=== PATIENT | male | born 1955 | race Two or more races ===

== ENCOUNTER 2025-07-04 15:00 | Inpatient (IN) | payer OTHER, MEDICAID, MEDICARE, SELFPAY ==
[2025-07-04 15:04] VITALS: BP 109/77; PULSE 110; PULSE 125; RESP 16; RESP 18; TEMP 36.6; O2SAT 95; O2SAT 99; BMI 25.9
--- NOTE | 2025-07-04 15:22 | EKG_ITS ---
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
[2025-07-04 15:55] LABS: Lactate (Lactic Acid) 2.3 mMol/L (0.4-2.0)
[2025-07-04 15:57] LABS: Collection Type, Urine Clean Catch; Squamous Epithelial Cell,Urine 0 /hpf (0-5)
[2025-07-04 15:59] LABS: Basophils # (Auto) 0.1 Thou/mm3 (0.0-0.2); Basophils % (Auto) 1 % (0-2.5); Eosinophils # (Auto) 0.1 Thou/mm3 (0.0-0.5); Eosinophils % (Auto) 1 % (0-10); Hematocrit 39.7 % (41.0-53.0); Hemoglobin 13.6 g/dL (13.5-16.0); Immature Granulocytes Auto 0.04 Thou/mm3 (0.00-0.00); Lymphocytes # (Auto) 2.9 Thou/mm3 (1.0-4.8); Lymphocytes % (Auto) 35 % (10-50); Mean Corpuscular HGB Conc 34.3 g/dl (31.0-37.0); Mean Corpuscular Hemoglobin 29.8 pg (25.0-35.0); Mean Corpuscular Volume 87 fL (80-100); Monocytes # (Auto) 0.6 Thou/mm3 (0.0-0.8); Monocytes % (Auto) 7 % (0-12); Neutrophils # (Auto) 4.7 Thou/mm3 (1.8-7.7); Neutrophils % (Auto) 56 % (37-80); Nucleated Red Blood Cell # 0.00 Thou/mm3 (0.00-0.00); Nucleated Red Blood Cell % 0 /100 WBC (0); Platelet Count 145 Thou/mm3 (140-440); RDW Standard Deviation 40.3 fL (35.1-43.9); Red Blood Count 4.57 Miln/mm3 (4.50-5.90); White Blood Count 8.4 Thou/mm3 (3.8-10.6)
[2025-07-04 16:05] LABS: Bilirubin,Urine Negative (Negative); Blood,Urine Negative (Negative); Clarity,Urine Clear (Clear/Hazy); Color,Urine Yellow (Lt Yel-Yel); Glucose, Urine 4+ (Negative); Ketones,Urine Negative (Negative); Leukocyte Esterase,Urine Positive (Negative); Nitrite,Urine Negative (Negative); PH,Urine 6.0 (5.0-7.0); Protein,Urine 1+ (Neg - Trace); RBC,Urine 11 /hpf (0-3); Specific Gravity,Urine 1.025 (1.001-1.035); Urobilinogen,Urine Negative mg/dL (0.0-1.0); WBC,Urine 33 /hpf (0-5)
[2025-07-04 16:20] LABS: B-Type Natriuretic Peptide 333 pg/mL (0-100)
[2025-07-04 16:22] LABS: Anion Gap 13 (7-16); BUN/Creatinine Ratio 8 Ratio (12-20); Blood Urea Nitrogen 11 mg/dL (9-23); Calcium 8.8 mg/dL (8.3-10.6); Carbon Dioxide 21.7 mMol/L (20.0-31.0); Chloride 103 mMol/L (98-107); Creatinine (Component) 1.3 mg/dL (0.6-1.3); Estimated Creatinine Clearance 43.6 mL/min (>60); Glucose 363 mg/dL (74-106); Lipase 38 U/L (12-53); Osmolality,Calculated 290 (275-295); Potassium 3.8 mMol/L (3.4-5.1); Sodium 138 mMol/L (136-145); eGFR 59 See Note
[2025-07-04 16:23] LABS: Troponin I 1.070 ng/mL (0.0-0.045)
[2025-07-04 17:45] VITALS: PULSE 133
[2025-07-04 18:09] LABS: Troponin I 1.095 ng/mL (0.0-0.045)
[2025-07-04 18:35] VITALS: BP 121/77; PULSE 135; RESP 26; TEMP 36.8; O2SAT 95
[2025-07-04 18:50] LABS: Reflex Lactate? Y
[2025-07-04 20:00] VITALS: BP 110/72; PULSE 133; RESP 19; TEMP 36.8; O2SAT 97
[2025-07-04 20:04] LABS: Lactic Acid, 3 HR 2.1 mMol/L (0.4-2.0)
[2025-07-04 20:42] LABS: Troponin I 1.108 ng/mL (0.0-0.045)
[2025-07-04] MEDS: INSULIN HUM REGULAR 1 UNIT/0.01 ML (PER UNIT) 8 UNIT SC (22:01)
[2025-07-04 22:02] VITALS: BP 116/82; PULSE 133
[2025-07-04] MEDS: FUROSEMIDE INJ 10 MG/ML 4ML VIAL 40 MG IVP (22:02)
[2025-07-04] MEDS: SODIUM CHLORIDE 0.9% 1000 ML 1,000 ML 150 ML IV (22:03)
--- NOTE | 2025-07-04 22:15 | PD.EDSYNC ---
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 Patient was seen at this facility approximately 1 week ago for an unknown testicular surgical procedure. Patient does not recall if it was a hernia procedure or testicular torsion. Subsequent to that procedure, patient was sent [place] [facility] for a few days and eventually went up in a rehab facility. Per EMS, patient had gotten up to utilize the bathroom when the syncopal event occurred. Unknown as to the amount of time the patient was down. At arrival, patient had no physical complaints of trauma status post syncopal event. No blood loss. Related Data Allergies Allergy/AdvReac Type Severity Reaction Status Date / Time No Known Allergies Allergy Verified 07/04/25 15:03 Review of Systems Review of Systems Systems Reviewed: All systems reviewed, normal except as documented Past Medical History Past Medical History CARDIAC: Negative Congestive Heart Failure RESPIRATORY: Negative Chronic Obstructive Pulmonary Disease (COPD) GENITOURINARY: Negative Renal Disease ENDOCRINE: Positive Diabetes Mellitus Type 2; Negative Diabetes Mellitus Type 1 Surgical History OTHER SURGICAL HX: TESTICULAR SURGERY Social History SMOKING STATUS: Never smoker ED Exam General Limitations: Present language barrier General appearance: Present in distress (Due to some generalized lightheadedness concern.) Head Head exam: Present atraumatic and other (Unremarkable cranial evaluation. No signs of trauma. No skull depressions or deformities.) Eye Eye exam: Present normal appearance, PERRL and EOMI ENT ENT exam: Present normal exam, normal oropharynx and mucous membranes moist Neck Neck exam: Present normal inspection, full ROM and trachea midline Chest Chest inspection: Present normal inspection and symmetric chest wall rise Respiratory Respiratory exam: Present normal lung sounds bilaterally Cardiovascular Cardiovascular exam: Present regular rate, normal rhythm and normal heart sounds Abdominal Exam Abdominal exam: Present soft and normal bowel sounds Extremities Exam Extremities exam: Present normal inspection and full ROM Back Exam Back exam: Present normal inspection and full ROM Neurological Exam Neurological exam: Present alert, oriented X3 and CN II-XII intact Psychiatric Psychiatric exam: Present normal affect and normal mood Skin Skin exam: Present warm, dry, intact and normal color Course Quality Measures none Orders Category Date Time Status IV [Insert IV] NOW Care 07/04/25 15:24 Active EKG (ED Only) Stat Exams 07/04/25 15:22 Draft BMP [Basic Metabolic Panel] Stat Lab 07/04/25 15:41 Completed BNP [B-Type Natriuretic Peptide] Stat Lab 07/04/25 15:41 Completed CBC Stat Lab 07/04/25 15:41 Completed Lactate (Lactic Acid) Stat Lab 07/04/25 15:41 Completed Lactic Acid, 3 HR Stat Lab 07/04/25 19:51 Completed Lipase Stat Lab 07/04/25 15:41 Completed Troponin I Stat Lab 07/04/25 15:41 Completed Troponin I Stat Lab 07/04/25 17:26 Completed Troponin I Stat Lab 07/04/25 19:51 Completed UA [Urinalysis] Stat Lab 07/04/25 15:46 Completed Furosemide Inj [Lasix Inj] Med 07/04/25 20:48 Discontinued 40 mg IVP X1 ONE Insulin Human NPH [NovoLIN N] Med 07/04/25 20:48 Discontinued 8 unit SC X1 ONE Insulin Regular Med 07/04/25 21:56 Discontinued 8 unit SC X1 ONE Sodium Chloride 0.9% 1000 ml [Ns] 1,000 ml Med 07/04/25 20:48 Active IV 150 mls/hr cefTRIAXone [Rocephin] 1,000 mg Med 07/04/25 20:49 Discontinued Lidocaine 1% Pf Vial 5ml [Xylocaine 1% Pf 5 ml] 2.1 ml IM X1 As noted above Vital Signs Vital signs: Vital Signs Temperature 97.9 F 07/04/25 15:04 Pulse Rate 125 H 07/04/25 15:04 Respiratory Rate 18 07/04/25 15:04 Blood Pressure 109/77 07/04/25 15:04 Pulse Oximetry (%) 95 07/04/25 15:04 Oxygen Delivery Method Room Air 07/04/25 15:04 As noted above Syncope MDM Narrative MDM Narrative:: All studies performed at the ED were evaluated by me personally. Serum studies revealed a hyperglycemic state, what appears to be acute renal injury, elevated lactic acid, urinary tract infection and significant CHF exacerbation. Patient will be admitted for management of his probable uroseptic event as well as a CHF. Discussed the case with Dr. Prescott. Advised him of patient presentation as well as laboratory findings. He agreed except patient as an admission. Patient data External records reviewed:: [facility] previous records Clinical information provided by:: patient and EMS Social determinants that could affect healthcare access:: none Patient has the following chronic illnesses:: None How is presenting disease/condition affected by chronic disease/condition?: uneffected by Evaluation data The following diagnostics were reviewed and interpreted by me:: lab results and EKG tracing(s) Lab and/or radiology exams considered but not ordered:: None Interpretation Summary: Serum laboratories revealed a hyperglycemic state, what appears to be acute renal injury concerns, elevated lactic acid, significant acute CHF exacerbation and a UTI that may be related to uroseptic concern. Medications / Prescriptions Medications or Prescriptions considered but not ordered:: None Medication administrations:: Medication Administration History Sodium Chloride (Ns) 1,000 mls @ 150 mls/hr IV .[id number] ONE Stop: 07/05/25 03:27 Last Admin: 07/04/25 22:03 Dose: 150 mls/hr Documented By: TAVIA Discontinued Medications Ceftriaxone Sodium 1,000 mg/ (Lidocaine HCl 2.1 ml) 0 mg IM X1 ONE Stop: 07/04/25 20:50 Last Admin: 07/04/25 22:04 Dose: 2.1 mg Documented By: TAVIA Furosemide (Furosemide Inj 10 Mg/Ml 4ml Vial) 40 mg IVP X1 ONE Stop: 07/04/25 20:49 Last Admin: 07/04/25 22:02 Dose: 40 mg Documented By: TAVIA Insulin Human NPH (Insulin Nph 1 Unit/0.01 Ml (Per Unit)) 8 unit SC X1 ONE Stop: 07/04/25 20:49 Last Admin: 07/04/25 22:04 Dose: Not Given Documented By: TAVIA Non-Admin Reason: Discontinued Insulin Human Regular (Insulin Hum Regular 1 Unit/0.01 Ml (Per Unit)) 8 unit SC X1 ONE Stop: 07/04/25 21:57 Last Admin: 07/04/25 22:01 Dose: 8 unit Documented By: TAVIA Co-signed By: CVL As noted above Consultations Consultation(s) initiated? (list below): Yes Consultation #1 (Physician, Specialty, Details): Dr Alhalaibeh Time: 21:30 Diagnosis Syncope Differential Diagnosis: syncope due to orthostatic hypotension, vasovagal syncope, complete atrioventricular block and other (Urosepsis, CHF) Most likely diagnosis given after review of the tests above:: Urosepsis, CHF Admission Indicated Admission indicated?: indicated Explain why admission is indicated or not indicated:: Patient will require management of his CHF exacerbation as well as antibiotics to address his urinary tract concerns. Admission Request Was there a request for admission?: Yes Admission Attestation Admission request attestation: Discussed case with [] from Hospitalist service regarding admission. Discussed patients ED course, exam findings, labs, and radiology results. The Hospitalist [agrees,declines] to accept the patient for admission. Disposition Plan Disposition Plan: Admit Discharge Plan Plan Patient Disposition: Admit Acute Care w/in Hospital Prescriptions/Referrals Referrals: Koby Morgan MD [Primary Care Provider] - In 1 week Problem List Clinical Impression: Acute exacerbation of CHF (congestive heart failure), Bacterial UTI Patient/Caregiver Discharge Instructions Print Language: Khmer Stand Alone Forms: Lupe Award Info., Patient Portal Info Letter
--- NOTE | 2025-07-04 22:26 | ECHO_ITS ---
Patient Info Name: Yaakov Avitia Age: 69 years : 1955 Gender: Male Ht: 163 cm Wt: 68 kg BSA: 1.77 m2 BP: 116 / 82 mmHg HR: 111 bpm Exam Date: 07/05/2025 6:56 AM Admit Date: 07/04/2025 Site: [facility] Room Number: [id number] Patient Status: I Exam Type: CA echo doppler complete Warp Tester: Ofe Lopez Ordering Physician: Lon Burger Study Info Indications STEMI - Contrast/Agitated Saline Contrast/Ag. Saline: Agitated Saline Amount: --- ml Primary Location: [id number] Left Ventricular Outflow Tract Name Value Normal LVOT 2D LVOT Diameter 1.9 cm LVOT Doppler LVOT Peak Velocity 87 cm/s LVOT Mean Gradient 2 mmHg LVOT VTI 14 cm LVOT VTI/AV VTI Ratio 1.2 LVOT Stroke Volume 41 ml Pulmonic Valve Name Value Normal PV Doppler PV Peak Velocity 84 cm/s PV Regurgitation Doppler ND Peak End Diastolic Velocity 147 cm/s Mitral Valve Name Value Normal MV Doppler MV Decel Dawes 548 cm/s2 MV PHT 43 ms MV Area (PHT) 5.1 cm2 4.0-5.0 MV Diastolic Function MV E Peak Velocity 81 cm/s MV A Peak Velocity 51 cm/s MV E/A 1.6 MV Annular TDI MV Septal e' Velocity 6.9 cm/s MV E/e' (Septal) 11.8 MV Lateral e' Velocity 7.5 cm/s MV E/e' (Lateral) 10.8 MV e' Average 7.18 cm/s MV E/e' (Average) 11.3 Tricuspid Valve Name Value Normal TV Regurgitation Doppler TR Peak Velocity 321 cm/s Estimated PAP/RSVP RA Pressure 3 mmHg <=5 PA Systolic Pressure 44 mmHg <36 RV Systolic Pressure 44 mmHg <36 Aortic Valve Name Value Normal AV Doppler AV Peak Velocity 91 cm/s AV Mean Gradient 2 mmHg AV VTI 12 cm AV Area (Cont Eq VTI) 3.5 cm2 >=3.0 AV Area (Cont Eq Dewey) 2.7 cm2 AV DI (Dewey) 0.95 AV Regurgitation 2D LVOT Area 2.8 cm2 Ventricles Name Value Normal LV Dimensions 2D/MM IVS Diastolic Thickness (2D) 0.9 cm 0.6-1.0 LVID Diastole (2D) 3.2 cm 4.2-5.8 LVIW Diastolic Thickness (2D) 1.1 cm 0.6-1.0 LVID Systole (2D) 2.1 cm 2.5-4.0 LVOT Diameter 1.9 cm LV Mass (2D Cubed) 90.32 g 88.00-224.00 LV Mass Index (2D Cubed) 51 g/m2 49-115 Relative Wall Thickness (2D) 0.69 <=0.42 IVS/LVIW Diastolic Thickness (2D) 0.82 0.00-1.50 LV Fractional Shortening/Ejection Fraction 2D/MM LV Fractional Shortening (2D) 34 % 25-43 LV EF (2D Teichholz) 65 % Atria Name Value Normal LA Dimensions LA Volume (4C A-L) 33 ml LA Volume (BP A-L) 33 ml Left Ventricle Left ventricular chamber dimension is normal. Left ventricular systolic function is normal with visually estimated ejection fraction of 50-55%. There is concentric remodeling noted in the left ventricle. Left ventricular segmental wall motion is normal. There is normal diastolic function in the left ventricle. Right Ventricle Right ventricular chamber dimension is normal. Right ventricular systolic function is reduced. Left Atrium Left atrial chamber dimension is normal. Right Atrium Right atrial chamber dimension is normal. Aortic Valve The aortic valve is trileaflet. There is mild aortic valve sclerosis. Trace and mild aortic regurgitation. There is no aortic valve stenosis with a peak velocity of 91 cm/s, mean gradient of 2 mmHg, and aortic valve area of 3.5 cm2. There is trace aortic valve regurgitation. Pulmonic Valve The pulmonic valve is normal. There is no pulmonic valve stenosis. There is mild pulmonic regurgitation. Mitral Valve The mitral valve has normal leaflets. There is no mitral valve stenosis. There is mild mitral valve regurgitation. Tricuspid Valve The tricuspid valve leaflets are normal. There is no tricuspid valve stenosis. There is mild tricuspid valve regurgitation. Pulmonary hypertension, estimated pulmonary arterial systolic pressure is 44 mmHg and systemic blood pressure of 116 mmHg in systole. Pericardium/Pleural The pericardium appears normal. There is no pericardial effusion. No pleural effusion visualized. Inferior Vena Cava Normal inferior vena cava with >50% collapse upon inspiration consistent with normal right atrial pressure, 3 mmHg. Aorta The aortic measurements are indexed to age and body surface area. The aortic root at the sinus of Valsalva is not well visualized. The prox ascending aorta is not well visualized. Summary 1. ncc calcified. 2. Left ventricle size is normal and systolic function is normal. Estimated ejection fraction is 50-55%. Mild LVH. There is stage 1 diastolic function. 3. Right ventricle chamber size is normal and systolic function is reduced. Estimated RVSP is 44 mmHg with RAP 3. Severe HTN. 4. There is mild mitral, tricuspid and pulmonic valve regurgitation. 5. There is mild aortic valve sclerosis. Trace and mild aortic regurgitation. 6. Bubble study negative for any PFO or ASD. Report Signatures Finalized by Miguel Saldivar on 07/06/2025 12:55 AM
--- NOTE | 2025-07-04 23:28 | XR_ITS ---
EXAMINATION: AP chest single view TECHNIQUE: AP portable upright chest single view Date and time: July 04, 2025, 11:32 p.m. INDICATIONS: Syncopal episode today FINDINGS: Mild prominence of the ventricle No lobar pneumonia or pulmonary edema Moderate osteopenia IMPRESSION: No active disease
[2025-07-04 23:30] LABS: INR 1.0 (0.9-1.3); Partial Thromboplastin Time 33.0 Seconds (22.0-36.0); Prothrombin Time 10.9 Seconds (9.0-12.2)
--- NOTE | 2025-07-04 23:40 | ESHP_ITS ---
<Statement entered by Brad Crouch MD - 07/05/25 06:10> Patient is a poor historian, Setswana-speaking, took history with the help of laborer road on phone. 69-year-old male who is recently diagnosed with hyperlipidemia, diabetes mellitus on insulin a month ago, recently underwent surgery on his right testis,? Radha gangrene and [facility], 2 weeks ago and was discharged on [facility] and completed last dose on the day before of admission, remote history of prostate problem and underwent procedure in [place] following which his urinary symptoms improved per patient was brought to the hospital as he was noted to have presyncopal like episode in the facility. Reported that he was doing his regular physical therapy and walking across the street, at the end of the street noted to have dizziness, generalized weakness and feeling of legs giving away with blackout and immediately reported that he sat down. Did not sustain any fall. Reported to have mild chest discomfort at that time and slowly resolved later. At the time of admission to did not have any significant symptoms. Vitals at the time of admission are significant for tachycardia with heart rate around 125 bpm, sinus tachycardia. Labs at the time of admission are significant for lactate 2.3, troponin 1.070, glucose 363. Urinalysis significant for 11 RBC, 33 WBC. EKG showed sinus tachycardia with ST depressions in leads I, 2, V3-V5, ST segment elevation in the aVR. Was given NS, Lasix, insulin, ceftriaxone, insulin NPH 8 units in the ED. Admitted by the hospitalist team in view of NSTEMI. Loading dose of aspirin 325 mg is given and patient is started on heparin drip. Echocardiogram was ordered. Consulted machine packager, Dr. Saldivar. Started on insulin sliding scale. I have personally seen and examined the patient, agree with residents assessment and plan Patient plan of care was discussed with the attending physician, Dr. Genie Crouch, PGY2 Documentation for date of: 07/04/25 HPI History of Present Illness History of present illness: HPI: 69-year-old Setswana-speaking male with a past medical history of insulin- dependent diabetes currently in acute rehab for an unspecified testicular lumpectomy procedure 2 weeks ago who presented to the ED in the evening of 07/04/2025 after syncopal episode. The patient mentions that he had vision changes and chest pain and then fainted. He does not recall when the event happened. He endorsed nausea and pain on respiration on arrival. He denied loss of control of his bowel or bladder. He denied trauma. Patient is a poor historian. He mentioned an unspecified testicular lump procedure that was performed 2 weeks ago. He is currently at [facility] re[facility] for acute rehab following his procedure. Per the facility the patient experienced a syncopal episode during physical therapy. He was found to have a troponin of 1.071. EKG showed sinus tachycardia with a rate of [address] elevation greater than 1 mm in aVR, ST depressions in V3-V6 0.5-2 mm. Patient was admitted for STEMI equivalent. ED Course: * Significant vitals on arrival: Heart rate 125, remainder vitals within normal limits. * Significant labs: Troponin 1.071, glucose 363, lactic acid 2.3 which downtrended to 2.1, BNP 333. * Imaging: EKG showed sinus tachycardia with a rate of [address] elevation greater than 1 mm in aVR, ST depressions in V3-V6 0.5-2 mm, chest x- ray showed mild left ventricular prominence * Urine: Protein 1+, glucose 4+, RBC 11, WBC 33, leukocyte esterase positive. * ED intervention: Patient received 8 units of regular insulin, 40 mg Lasix, and 1 g ceftriaxone. History: * Past medical history: As above in HPI * Surgical history: Unspecified testicular procedure 2-3 weeks ago * Social history: Currently at [facility] rehab. Denies alcohol tobacco or illicit drug use. Allergies: * No known drug allergies Home Medications: (Pending med rec) * Unspecified insulin CODE STATUS: Full code Review of Systems Review of Systems Narrative Review of Systems: Review of Systems: * General: Syncopal event the day of admission. Denies fevers, chills. * HEENT: Patient endorsed vision changes prior to the syncopal event. * Cardiac: Chest pain before the syncopal event. Denies palpitations. * Pulmonary: Pain on inspiration. Denies shortness of breath or cough. * GI: Nausea on arrival. Denies vomiting, diarrhea, constipation, melena, or hematochezia. * : Denies dysuria, hematuria, frequency, or urgency. * MSK: Denies trauma. Denies pain in the extremities, joints, or myalgias. * Neuro: Denies weakness, numbness, vision changes, or speech difficulty. Exam Vital Signs Temp Pulse Resp BP Pulse Ox O2 Del Method 98.2 F 133 H 19 116/82 97 Room Air 07/04/25 20:00 07/04/25 22:02 07/04/25 20:00 07/04/25 22:02 07/04/25 20:00 07/04/25 20:00 Narrative Exam General: Awake and in no acute distress. Conversational and non-toxic appearing. Neurologic: GCS 15. Alert and oriented x3, no gross neurological deficit, and patient able to move all 4 extremities. HEENT: Normocephalic, atraumatic, mucous membranes moist. Pupils reactive to light. Heart: Tachycardic, regular rhythm, normal S1 and S2, no murmurs. Lungs: Clear to auscultation bilaterally with no wheezing or crackles. Abdomen: Soft, nondistended, nontender, positive bowel sounds. No guarding or rebound tenderness. Extremities: No edema. 2+ radial and dorsalis pedis pulses bilaterally. Skin: Warm. Dry. No rash or ecchymoses. : White in place, draining yellow urine. Results: Labs 07/05/25 04:39 07/05/25 04:39 Labs: Short CBC 07/04/25 Range/Units 15:41 WBC 8.4 (3.8-10.6) Thou/mm3 Hgb 13.6 (13.5-16.0) g/dL Hct 39.7 L (41.0-53.0) % Plt Count 145 (140-440) Thou/mm3 BMP 07/04/25 15:41 Sodium 138 Potassium 3.8 Chloride 103 Carbon Dioxide 21.7 BUN 11 Creatinine 1.3 Glucose 363 H Calcium 8.8 Cardiac Enzymes 07/04/25 07/04/25 07/04/25 Range/Units 15:41 17:26 19:51 Troponin I 1.070 H* 1.095 H* 1.108 H* (0.0-0.045) ng/mL Urine 07/04/25 Range/Units 15:46 Urine Color Yellow (Lt Yel-Yel) Urine Clarity Clear (Clear/Hazy) Urine pH 6.0 (5.0-7.0) Ur Specific [place] 1.025 (1.001-1.035) Urine Protein 1+ A (Neg - Trace) Urine Glucose (UA) 4+ A (Negative) Quality Measures Quality Measures none Advance care planning discussed with:: patient Medications Home Medications and Allergies Allergies Allergy/AdvReac Type Severity Reaction Status Date / Time No Known Allergies Allergy Verified 07/05/25 11:21 Visit Medications Acetaminophen (Acetaminophen 325 Mg Tablet) 650 mg PO Q6H PRN PRN Reason: Fever >101.5 Stop: 08/03/25 22:26 Aspirin (Aspirin Ec 81 Mg Tabec) 81 mg PO DAILY [facility] Stop: 08/04/25 08:59 Sodium Chloride (Ns) 1,000 mls @ 150 mls/hr IV .Q6H40M ONE Stop: 07/05/25 03:27 Last Admin: 07/04/25 22:03 Dose: 150 mls/hr Heparin Sodium/Dextrose (Heparin In D5w Ivpb) 25,000 unit in 250 mls @ 8.219 mls/hr IV .Q24H OBDULIO; Protocol Stop: 07/18/25 23:29 Last Admin: 07/04/25 23:56 Dose: 12 units/kg/hr, 8.219 mls/hr Discontinued Medications Aspirin (Aspirin 325 Mg Tablet) 325 mg PO X1 ONE Stop: 07/04/25 22:34 Last Admin: 07/04/25 23:25 Dose: 325 mg Clopidogrel Bisulfate (Clopidogrel Bisulfate 75 Mg Tablet) 300 mg PO X1 ONE Stop: 07/04/25 22:34 Last Admin: 07/04/25 23:25 Dose: Not Given Clopidogrel Bisulfate (Clopidogrel Bisulfate 75 Mg Tablet) 75 mg PO DAILY [facility] Stop: 08/04/25 08:59 Ceftriaxone Sodium 1,000 mg/ (Lidocaine HCl 2.1 ml) 0 mg IM X1 ONE Stop: 07/04/25 20:50 Last Admin: 07/04/25 22:04 Dose: 2.1 mg Enoxaparin Sodium (Enoxaparin Sod Inj 40 Mg/0.4 Ml Syringe) 40 mg SC QDAY OBDULIO Stop: 07/19/25 08:59 Furosemide (Furosemide Inj 10 Mg/Ml 4ml Vial) 40 mg IVP X1 ONE Stop: 07/04/25 20:49 Last Admin: 07/04/25 22:02 Dose: 40 mg Heparin Sodium (Porcine) (Heparin Sod Inj 5000 Unit/Ml Vial) 4,000 unit IV X1 ONE; Protocol Stop: 07/04/25 22:38 Last Admin: 07/04/25 23:56 Dose: 4,000 unit Insulin Human NPH (Insulin Nph 1 Unit/0.01 Ml (Per Unit)) 8 unit SC X1 ONE Stop: 07/04/25 20:49 Last Admin: 07/04/25 22:04 Dose: Not Given Insulin Human Regular (Insulin Hum Regular 1 Unit/0.01 Ml (Per Unit)) 8 unit SC X1 ONE Stop: 07/04/25 21:57 Last Admin: 07/04/25 22:01 Dose: 8 unit Assessment & Plan Plan Summary: 69-year-old Setswana-speaking male with a past medical history of insulin- dependent diabetes currently in acute rehab for an unspecified testicular lumpectomy procedure 2 weeks ago who presented to the ED in the evening of 07/04/2025 after syncopal episode. The patient mentions that he had vision changes and chest pain and then fainted. He was found to have a troponin of 1.071. EKG showed sinus tachycardia with a rate of [address] elevation greater than 1 mm in aVR, ST depressions in V3-V6 0.5-2 mm. Patient was admitted for STEMI equivalent. #Acute coronary syndrome #STEMI Equivalent #Elevated Troponins #Syncope * EKG showed sinus tachycardia with a rate of [address] elevation greater than 1 mm in aVR, ST depressions in V3-V6 0.5-2 mm * Diffuse ST segment depression with ST elevation in aVR indicates STEMI equivalent * He described having vision changes followed by fainting followed by chest pain on awakening, he has no memory of the event. The facility was contacted and mentioned that the patient fainted during physical therapy. * Troponin 1.070 on arrival, followed by 1.108, followed by 0.936 * Patient mentioned that he had associated chest pain and also endorsed pain on inspiration * Chest x-ray showed mild prominence left ventricle, low suspicion of CHF * ASCVD score pending (need lipid panel data, ordered) * HEART score for Major Cardiac events: 8, risk of major adverse cardiac event 50-65%: * Moderately suspicious history (+1) * Significant ST deviation (+2) * Age over 65 (+2) * 1-2 risk factors (diabetes, hyperlipidemia?, Hypertension?) (+1) * Initial troponin greater than 3 times normal limit (+2) * Jaimee Score: 150, 21% probability of from admission to 6 months: * Age 69 * Close 125 * SBP 109 * Creatinine 1.3 * Cardiac arrest on admission: No * ST segment deviation on EKG: Yes * Abnormal cardiac enzymes: Yes * Killip Class: No CHF * ARTEM Score: 4, 20% risk at 14 days of all-cause mortality, new or recurrent [place], or severe recurrent ischemia requiring urgent revascularization: * Age over 65 (+1) * Greater than 3 CAD risk factors: Hypertension? Hypercholesterolemia? Diabetes (+1) * EKG ST changes greater than 0.5 mm (+1) * Positive cardiac marker (+1) Plan: * Loading dose Aspirin 325 mg * Aspirin 81 mg daily * Heparin 4000 units x 1 * Heparin 12 units per kg per hour * Lipid panel ordered * Echo ordered * O2 support as needed * Keep potassium over 4 and magnesium over 2 * Will get 1 more troponin in a.m. * Consider starting statin at bedtime * Cardiology consulted #UTI #Radha abscess * Patient presented with urinalysis that showed 1+ protein, 4+ glucose, 11 RBC, 33 WBC, leukocyte esterase positive * Patient has a semi-chronic White catheter that was placed due to an unspecified testicular lump removal procedure that he received a few weeks ago, may be contributing to the patient's acute UTI * Per facility, the patient was receiving ertapenem 1 g IV every 24 hours. 06/28 ? 07/03 Plan: * Ceftriaxone 1 g IV daily * Patient discharged on PO Abx (Resume on discharge as per discharge from [facility]) * Urine cultures pending #Insulin-Dependent Diabetes #Hyperglycemia * Patient presented with glucose 363 * Per the patient's facility, the patient takes insulin, pending med rec, dose unknown Plan: * Insulin sliding scale * 10 units degludec at bedtime * N.p.o. for now, likely will receive cardiac cath #Lactic Acidosis (Resolving) * Patient presented with a lactic acid 2.3, downtrended to 2.1 * Anion gap negative * Normotensive, afebrile * May be secondary to decreased peripheral perfusion secondary to acute STEMI * May also consider UTI as a contributing factor * May also consider syncopal episode, patient is a poor historian, unknown how long he was immobile, less likely #Elevated BNP #CHF Exacerbation? * Patient presented with a BNP of 333 * Chest x-ray showed mild left ventricular prominence * Patient has no signs of fluid overload on exam, no crackles, or peripheral edema Plan: * Echo ordered #Hyperlipidemia? * Patient presented with ST elevations and elevated troponins * No lipid panel on file Plan: * Lipid panel ordered Hospital Maintenance: DVT ppx: Heparin drip Diet: N.p.o. IV lines: Peripheral IV White: In place Code status: Full code Dispo: Telemetry, ST changes on EKG, elevated tropes, cardiology consulted, heparin drip, pending lipid panel, ceftriaxone for UTI. Patient was seen and discussed with my attending physician Dr. Genie WARNER and my senior resident Dr. Miko WARNER PGY-2. Lon Burger DO PGY-1. Attending Provider Attestation/Addendum After examining patient and review of the clinical data patient was found to have high probability of imminent deterioration which required my direct management and intervention TOTAL CC TIME: 45 MIN TOTAL TIME: 45 Minutes of direct medical management and planning of care for ACS. I Xochitl Prescott MD, attest that I was physically present for correia portions of evaluation, and examined patient, labs and imagings and plan of care were discussed with IM residents team, and I agree with the findings and plans documented above.
--- NOTE | 2025-07-04 23:40 | PD.RESHP ---
Documentation for date of: 07/04/25 [facility] History of Present Illness History of present illness: HPI: 69-year-old Ivorian-speaking male with a past medical history of insulin-dependent diabetes currently in acute rehab for an unspecified testicular lumpectomy procedure 2 weeks ago who presented to the ED in the evening of 07/04/2025 after syncopal episode. The patient mentions that he had vision changes and chest pain and then fainted. He does not recall when the event happened. He endorsed nausea and pain on respiration on arrival. He denied loss of control of his bowel or bladder. He denied trauma. Patient is a poor historian. He mentioned an unspecified testicular lump procedure that was performed 2 weeks ago. He is currently at [facility] and rehab for acute rehab following his procedure. Per the facility the patient experienced a syncopal episode during physical therapy. He was found to have a troponin of 1.071. EKG showed sinus tachycardia with a rate of [address] elevation greater than 1 mm in aVR, ST depressions in V3-V6 0.5-2 mm. Patient was admitted for STEMI equivalent. ED Course: Significant vitals on arrival: Heart rate 125, remainder vitals within normal limits. Significant labs: Troponin 1.071, glucose 363, lactic acid 2.3 which downtrended to 2.1, BNP 333. Imaging: EKG showed sinus tachycardia with a rate of [address] elevation greater than 1 mm in aVR, ST depressions in V3-V6 0.5-2 mm, chest x-ray showed mild left ventricular prominence Urine: Protein 1+, glucose 4+, RBC 11, WBC 33, leukocyte esterase positive. ED intervention: Patient received 8 units of regular insulin, 40 mg Lasix, and 1 g ceftriaxone. History: Past medical history: As above in HPI Surgical history: Unspecified testicular procedure 2-3 weeks ago Social history: Currently at [facility] and rehab. Denies alcohol tobacco or illicit drug use. Allergies: No known drug allergies Home Medications: (Pending med rec) Unspecified insulin CODE STATUS: Full code Review of Systems Review of Systems Narrative Review of Systems: Review of Systems: General: Syncopal event the day of admission. Denies fevers, chills. HEENT: Patient endorsed vision changes prior to the syncopal event. Cardiac: Chest pain before the syncopal event. Denies palpitations. Pulmonary: Pain on inspiration. Denies shortness of breath or cough. GI: Nausea on arrival. Denies vomiting, diarrhea, constipation, melena, or hematochezia. : Denies dysuria, hematuria, frequency, or urgency. MSK: Denies trauma. Denies pain in the extremities, joints, or myalgias. Neuro: Denies weakness, numbness, vision changes, or speech difficulty. Exam Vital Signs Temp Pulse Resp BP Pulse Ox O2 Del Method 98.2 F 133 H 19 116/82 97 Room Air 07/04/25 20:00 07/04/25 22:02 07/04/25 20:00 07/04/25 22:02 07/04/25 20:00 07/04/25 20:00 Narrative Exam General: Awake and in no acute distress. Conversational and non-toxic appearing. Neurologic: GCS 15. Alert and oriented x3, no gross neurological deficit, and patient able to move all 4 extremities. HEENT: Normocephalic, atraumatic, mucous membranes moist. Pupils reactive to light. Heart: Tachycardic, regular rhythm, normal S1 and S2, no murmurs. Lungs: Clear to auscultation bilaterally with no wheezing or crackles. Abdomen: Soft, nondistended, nontender, positive bowel sounds. No guarding or rebound tenderness. Extremities: No edema. 2+ radial and dorsalis pedis pulses bilaterally. Skin: Warm. Dry. No rash or ecchymoses. : White in place, draining yellow urine. Results: Labs 07/05/25 04:39 07/05/25 04:39 Labs: Short CBC 07/04/25 Range/Units 15:41 WBC 8.4 (3.8-10.6) Thou/mm3 Hgb 13.6 (13.5-16.0) g/dL Hct 39.7 L (41.0-53.0) % Plt Count 145 (140-440) Thou/mm3 BMP 07/04/25 15:41 Sodium 138 Potassium 3.8 Chloride 103 Carbon Dioxide 21.7 BUN 11 Creatinine 1.3 Glucose 363 H Calcium 8.8 Cardiac Enzymes 07/04/25 07/04/25 07/04/25 Range/Units 15:41 17:26 19:51 Troponin I 1.070 H* 1.095 H* 1.108 H* (0.0-0.045) ng/mL Urine 07/04/25 Range/Units 15:46 Urine Color Yellow (Lt Yel-Yel) Urine Clarity Clear (Clear/Hazy) Urine pH 6.0 (5.0-7.0) Ur Specific [place] 1.025 (1.001-1.035) Urine Protein 1+ A (Neg - Trace) Urine Glucose (UA) 4+ A (Negative) Quality Measures Quality Measures none Advance care planning discussed with:: patient Medications Home Medications and Allergies Allergies Allergy/AdvReac Type Severity Reaction Status Date / Time No Known Allergies Allergy Verified 07/05/25 11:21 Visit Medications Acetaminophen (Acetaminophen 325 Mg Tablet) 650 mg PO Q6H PRN PRN Reason: Fever >101.5 Stop: 08/03/25 22:26 Aspirin (Aspirin Ec 81 Mg Tabec) 81 mg PO DAILY [facility] Stop: 08/04/25 08:59 Sodium Chloride (Ns) 1,000 mls @ 150 mls/hr IV .Q6H40M ONE Stop: 07/05/25 03:27 Last Admin: 07/04/25 22:03 Dose: 150 mls/hr Heparin Sodium/Dextrose (Heparin In D5w Ivpb) 25,000 unit in 250 mls @ 8.219 mls/hr IV .Q24H [facility]; Protocol Stop: 07/18/25 23:29 Last Admin: 07/04/25 23:56 Dose: 12 units/kg/hr, 8.219 mls/hr Discontinued Medications Aspirin (Aspirin 325 Mg Tablet) 325 mg PO X1 ONE Stop: 07/04/25 22:34 Last Admin: 07/04/25 23:25 Dose: 325 mg Clopidogrel Bisulfate (Clopidogrel Bisulfate 75 Mg Tablet) 300 mg PO X1 ONE Stop: 07/04/25 22:34 Last Admin: 07/04/25 23:25 Dose: Not Given Clopidogrel Bisulfate (Clopidogrel Bisulfate 75 Mg Tablet) 75 mg PO DAILY [facility] Stop: 08/04/25 08:59 Ceftriaxone Sodium 1,000 mg/ (Lidocaine HCl 2.1 ml) 0 mg IM X1 ONE Stop: 07/04/25 20:50 Last Admin: 07/04/25 22:04 Dose: 2.1 mg Enoxaparin Sodium (Enoxaparin Sod Inj 40 Mg/0.4 Ml Syringe) 40 mg SC QDAY OBDULIO Stop: 07/19/25 08:59 Furosemide (Furosemide Inj 10 Mg/Ml 4ml Vial) 40 mg IVP X1 ONE Stop: 07/04/25 20:49 Last Admin: 07/04/25 22:02 Dose: 40 mg Heparin Sodium (Porcine) (Heparin Sod Inj 5000 Unit/Ml Vial) 4,000 unit IV X1 ONE; Protocol Stop: 07/04/25 22:38 Last Admin: 07/04/25 23:56 Dose: 4,000 unit Insulin Human NPH (Insulin Nph 1 Unit/0.01 Ml (Per Unit)) 8 unit SC X1 ONE Stop: 07/04/25 20:49 Last Admin: 07/04/25 22:04 Dose: Not Given Insulin Human Regular (Insulin Hum Regular 1 Unit/0.01 Ml (Per Unit)) 8 unit SC X1 ONE Stop: 07/04/25 21:57 Last Admin: 07/04/25 22:01 Dose: 8 unit Assessment & Plan Plan Summary: 69-year-old Ivorian-speaking male with a past medical history of insulin-dependent diabetes currently in acute rehab for an unspecified testicular lumpectomy procedure 2 weeks ago who presented to the ED in the evening of 07/04/2025 after syncopal episode. The patient mentions that he had vision changes and chest pain and then fainted. He was found to have a troponin of 1.071. EKG showed sinus tachycardia with a rate of [address] elevation greater than 1 mm in aVR, ST depressions in V3-V6 0.5-2 mm. Patient was admitted for STEMI equivalent. #Acute coronary syndrome #STEMI Equivalent #Elevated Troponins #Syncope EKG showed sinus tachycardia with a rate of [address] elevation greater than 1 mm in aVR, ST depressions in V3-V6 0.5-[address] segment depression with ST elevation in aVR indicates STEMI equivalent He described having vision changes followed by fainting followed by chest pain on awakening, he has no memory of the event. The facility was contacted and mentioned that the patient fainted during physical therapy. Troponin 1.070 on arrival, followed by 1.108, followed by 0.936 Patient mentioned that he had associated chest pain and also endorsed pain on inspiration Chest x-ray showed mild prominence left ventricle, low suspicion of CHF ASCVD score pending (need lipid panel data, ordered) HEART score for Major Cardiac events: 8, risk of major adverse cardiac event 50-65%: Moderately suspicious history (+1) Significant ST deviation (+2) Age over 65 (+2) 1-2 risk factors (diabetes, hyperlipidemia?, Hypertension?) (+1) Initial troponin greater than 3 times normal limit (+2) Jaimee Score: 150, 21% probability of from admission to 6 months: Age 69 Close 125 SBP 109 Creatinine 1.3 Cardiac arrest on admission: No ST segment deviation on EKG: Yes Abnormal cardiac enzymes: Yes Killip Class: No CHF ARTEM Score: 4, 20% risk at 14 days of all-cause mortality, new or recurrent AR, or severe recurrent ischemia requiring urgent revascularization: Age over 65 (+1) Greater than 3 CAD risk factors: Hypertension? Hypercholesterolemia? Diabetes (+1) EKG ST changes greater than 0.5 mm (+1) Positive cardiac marker (+1) Plan: Loading dose Aspirin 325 mg Aspirin 81 mg daily Heparin 4000 units x 1 Heparin 12 units per kg per hour Lipid panel ordered Echo ordered O2 support as needed Keep potassium over 4 and magnesium over 2 Will get 1 more troponin in a.m. Consider starting statin at bedtime Cardiology consulted #UTI #Radha abscess Patient presented with urinalysis that showed 1+ protein, 4+ glucose, 11 RBC, 33 WBC, leukocyte esterase positive Patient has a semi-chronic White catheter that was placed due to an unspecified testicular lump removal procedure that he received a few weeks ago, may be contributing to the patient's acute UTI Per facility, the patient was receiving ertapenem 1 g IV every 24 hours. 06/28 ? 07/03 Plan: Ceftriaxone 1 g IV daily Patient discharged on PO Abx (Resume on discharge as per discharge from [facility]) Urine cultures pending #Insulin-Dependent Diabetes #Hyperglycemia Patient presented with glucose 363 Per the patient's facility, the patient takes insulin, pending med rec, dose unknown Plan: Insulin sliding scale 10 units degludec at bedtime N.p.o. for now, likely will receive cardiac cath #Lactic Acidosis (Resolving) Patient presented with a lactic acid 2.3, downtrended to 2.1 Anion gap negative Normotensive, afebrile May be secondary to decreased peripheral perfusion secondary to acute STEMI May also consider UTI as a contributing factor May also consider syncopal episode, patient is a poor historian, unknown how long he was immobile, less likely #Elevated BNP #CHF Exacerbation? Patient presented with a BNP of 333 Chest x-ray showed mild left ventricular prominence Patient has no signs of fluid overload on exam, no crackles, or peripheral edema Plan: Echo ordered #Hyperlipidemia? Patient presented with ST elevations and elevated troponins No lipid panel on file Plan: Lipid panel ordered Hospital Maintenance: DVT ppx: Heparin drip Diet: N.p.o. IV lines: Peripheral IV White: In place Code status: Full code Dispo: Telemetry, ST changes on EKG, elevated tropes, cardiology consulted, heparin drip, pending lipid panel, ceftriaxone for UTI. Patient was seen and discussed with my attending physician Dr. Genie WARNER and my senior resident Dr. Miko WARNER PGY-2. Lon Burger DO PGY-1. Attending Provider Attestation/Addendum After examining patient and review of the clinical data patient was found to have high probability of imminent deterioration which required my direct management and intervention TOTAL CC TIME: 45 MIN TOTAL TIME: 45 Minutes of direct medical management and planning of care for ACS. I Xochitl Prescott MD, attest that I was physically present for correia portions of evaluation, and examined patient, labs and imagings and plan of care were discussed with IM residents team, and I agree with the findings and plans documented above.
[2025-07-04] MEDS: HEPARIN SOD INJ 5000 UNIT/ML VIAL 4000 UNIT IV (23:56)
[2025-07-04] MEDS: Heparin/D5w 25K 250 ML Ivpb 25,000 UNIT/250 ML BAG 8.219 UNIT IV (23:56)
[2025-07-05] VITALS (20 sets, daily range): BP systolic 99–142; BP diastolic 63–91; PULSE 96–113; RESP 16–21; TEMP 36.4–36.9; O2SAT 92–97
[2025-07-05 00:55] LABS: Troponin I 0.936 ng/mL (0.0-0.045)
[2025-07-05 04:59] LABS: Basophils # (Auto) 0.0 Thou/mm3 (0.0-0.2); Basophils % (Auto) 1 % (0-2.5); Eosinophils # (Auto) 0.1 Thou/mm3 (0.0-0.5); Eosinophils % (Auto) 2 % (0-10); Hematocrit 39.8 % (41.0-53.0); Hemoglobin 14.0 g/dL (13.5-16.0); Immature Granulocytes Auto 0.05 Thou/mm3 (0.00-0.00); Lymphocytes # (Auto) 3.1 Thou/mm3 (1.0-4.8); Lymphocytes % (Auto) 37 % (10-50); Mean Corpuscular HGB Conc 35.2 g/dl (31.0-37.0); Mean Corpuscular Hemoglobin 30.1 pg (25.0-35.0); Mean Corpuscular Volume 86 fL (80-100); Monocytes # (Auto) 0.7 Thou/mm3 (0.0-0.8); Monocytes % (Auto) 8 % (0-12); Neutrophils # (Auto) 4.3 Thou/mm3 (1.8-7.7); Neutrophils % (Auto) 52 % (37-80); Nucleated Red Blood Cell # 0.00 Thou/mm3 (0.00-0.00); Nucleated Red Blood Cell % 0 /100 WBC (0); Platelet Count 150 Thou/mm3 (140-440); RDW Standard Deviation 39.5 fL (35.1-43.9); Red Blood Count 4.65 Miln/mm3 (4.50-5.90); White Blood Count 8.2 Thou/mm3 (3.8-10.6)
[2025-07-05 05:15] LABS: Glucose Estimated Average 235 mg/dL (80-131); Hemoglobin A1C 9.8 % Hgb (4.8-6.0)
[2025-07-05 05:28] LABS: Alanine Aminotransferase 38 U/L (10-49); Albumin, Serum 3.8 gm/dL (3.4-4.8); Albumin/Globulin Ratio 1.1 (1.2-2.2); Alkaline Phosphatase 135 U/L (46-116); Anion Gap 12 (7-16); Aspartate Amino Transferase 21 U/L (0-34); BUN/Creatinine Ratio 10 Ratio (12-20); Bilirubin,Total 0.4 mg/dL (0.3-1.2); Blood Urea Nitrogen 12 mg/dL (9-23); Calcium 8.5 mg/dL (8.3-10.6); Calcium (Corrected) 8.7 mg/dL (8.5-10.1); Carbon Dioxide 17.7 mMol/L (20.0-31.0); Cardiac Risk Estimate 6.2 RATIO (4.0-6.7); Chloride 109 mMol/L (98-107); Cholesterol 204 mg/dL (132-200); Creatinine (Component) 1.2 mg/dL (0.6-1.3); Estimated Creatinine Clearance 47.3 mL/min (>60); Globulin 3.4 gm/dL (2.3-3.5); Glucose 323 mg/dL (74-106); HDL Cholesterol 33 mg/dL (40-60); LDL Cholesterol,Calculated 107 mg/dL (0-130); Magnesium 1.6 mg/dL (1.6-2.6); Osmolality,Calculated 289 (275-295); Potassium 3.5 mMol/L (3.4-5.1); Sodium 139 mMol/L (136-145); Thyroid Stimulating Hormone 6.55 uIU/mL (0.55-4.78); Total Protein 7.2 gm/dL (5.7-8.2); Triglycerides 321 mg/dL (30-150); eGFR > 60 See Note
[2025-07-05 05:31] LABS: Troponin I 0.823 ng/mL (0.0-0.045)
[2025-07-05 06:38] LABS: Partial Thromboplastin Time 47.4 Seconds (22.0-36.0)
[2025-07-05] MEDS: HEPARIN SOD INJ 5000 UNIT/ML VIAL 2000 UNIT IVP (07:26)
[2025-07-05 08:17] LABS: Free T4 (Free Thyroxine) 1.63 ng/dL (0.89-1.76)
[2025-07-05] MEDS: POTASSIUM CHL 10 mEq IVPB 10 MEQ/100 ML BAG 100 MEQ IV (08:59)
[2025-07-05] MEDS: ZINC GLUCONATE 50 MG TABLET PO (09:00)
[2025-07-05] MEDS: ASPIRIN EC 81 MG TABEC PO (09:00)
[2025-07-05] MEDS: ASCORBIC ACID 250 MG TABLET 500 MG PO (09:00)
[2025-07-05] MEDS: INSULIN LISPRO (AdmeLOG) 1 UNIT/0.01 ML UNIT SC ×4 (09:07→20:52)
[2025-07-05] MEDS: Magnesium Sulfate 4 GM Ivpb 4 GM/50 ML BAG IV (09:29)
[2025-07-05] MEDS: ATORVASTATIN CALCIUM 20 MG TABLET 80 MG PO (09:29)
--- NOTE | 2025-07-05 10:55 | PC.SS ---
[facility] [employer] conducted bedside contact with the patient conduct initial assessment and to discuss discharge planning.? Patient confirmed demographic information.? Patient is a resident of [facility].? Patient has been at facility for approximately 1 week.? Patient is short term resident.? Patient utilizes a walker to assist with ambulation.? Patient does not utilize home oxygen.? Facility staff assists the patient with the completion of ADL?s.? Patient identified nephew, Jose Elias Kenny ; as medical surrogate decision maker.? Facility PCP is Dr. Morgan.? Patient does not participate with dialysis.? Plan is for the patient to return [facility] at the time of discharge.? Patient possesses coverage for ambulance transport.? No further discharge needs identified by the patient.? No further intervention required at this time, social services specialist will be available to address any further concerns.? Next of Kin: Jose Elias Cox D/C Plan: SNF
--- NOTE | 2025-07-05 11:05 | PC.SS ---
Updated clinicals submitted to [facility] via [facility].
--- NOTE | 2025-07-05 12:21 | ESPR_ITS ---
<Statement entered by Vincent Holloway MD - 07/05/25 15:41> Overnight admission. Seen and examined at bedside and resting comfortably in bed. Denies any chest discomfort or shortness of breath at this time. Upon examination, noted previous testicular surgical procedure that is open without primary closure and no noted purulence. Wound culture has been consulted. Otherwise, vital signs stable, CBC unremarkable, CHEM panel showed A1c of 9.8%, LDL 107, HDL 33, TGL 321. Troponins peaked at 0.1 and down trended afterwards. Echo obtained and pending read and cardiology planning to take patient to cath today. Will follow-up on results and recommendations. ----- Note reviewed and agree with care plan as documented. Please refer to the note below for further details. Plan discussed with attending physician Dr. Lucas Holloway MD PGY-2 Internal Medicine Documentation for date of: 07/05/25 Subjective Subjective Interval history: Mr. Nuno is doing well this morning, save for denoting pain on IV infusion of potassium. He is not endorsing chest, arm nor jaw pain. Physical exam reveals an open wound of his previous orchiectomy(right) site. No appreciable swelling, erythema nor tenderness is noted on exam. He had asked nursing to remove packing previously. Otherwise VSS NAEO. troponins are downtrending. Pending cardiac catheterization. Exam Vital Signs Temp Pulse Resp BP Pulse Ox O2 Del Method 97.6 F 107 H 17 99/63 96 Room Air 07/05/25 08:00 07/05/25 08:00 07/05/25 08:00 07/05/25 08:00 07/05/25 08:00 07/05/25 08:00 Narrative Exam General: alert and oriented to self/place/year, no acute distress, able to speak full sentences; [place] speaking, in good spirits HEENT: NC/AT, mucous membranes moist, bilateral sclera anicteric Cardiovascular: regular rate and rhythm, S1/S2 present, no murmurs appreciated Pulmonary: clear to auscultation bilaterally, no rales/rhonchi/wheezes Abdominal: soft, nontender, present bowel sounds Musculoskeletal: no peripheral edema : open wound, removed packing from R orchiectomy. Nonerythematous, nontender, no evidence of infection Skin: Warm, well-perfused Objective Labs 07/06/25 05:02 07/06/25 05:02 Labs: Laboratory Results - last 24 hr 07/04/25 07/04/25 07/04/25 15:41 15:46 17:26 WBC 8.4 RBC 4.57 Hgb 13.6 Hct 39.7 L MCV 87 MCH 29.8 MCHC 34.3 RDW Std Deviation 40.3 Plt Count 145 Neut % (Auto) 56 Lymph % (Auto) 35 [place] % (Auto) 7 Eos % (Auto) 1 Baso % (Auto) 1 Neut # (Auto) 4.7 Lymph # (Auto) 2.9 [place] # (Auto) 0.6 Eos # (Auto) 0.1 Baso # (Auto) 0.1 Immature Gran # (Auto) 0.04 H Absolute Nucleated RBC 0.00 Immature Gran % 1 H Nucleated RBC % 0 PT INR APTT Sodium 138 Potassium 3.8 Chloride 103 Carbon Dioxide 21.7 Anion Gap 13 BUN 11 Creatinine 1.3 Estim Creat Clear Calc 43.6 L eGFR 59 L BUN/Creatinine Ratio 8 L Glucose [address] Glu mg/dL Hemoglobin A1c Calculated Osmolality 290 Lactic Acid 2.3 H Calcium 8.8 Corrected Calcium Magnesium Total Bilirubin AST ALT Alkaline Phosphatase Troponin I 1.070 H* 1.095 H* B-Natriuretic Peptide 333 H Total Protein Albumin Globulin Albumin/Globulin Ratio Triglycerides Cholesterol LDL Cholesterol, Calc HDL Cholesterol Cholesterol/HDL Ratio Lipase 38 TSH Free T4 Ur Collection Type Clean Catch Urine Color Yellow Urine Clarity Clear Urine pH 6.0 Ur Specific [place] 1.025 Urine Protein 1+ A Urine Glucose (UA) 4+ A Urine Ketones Negative Urine Blood Negative Urine Nitrite Negative Urine Bilirubin Negative Urine Urobilinogen (Auto) Negative Ur Leukocyte Esterase Positive Urine RBC 11 H Urine WBC 33 H Ur Squamous Epith Cells 0 Urine Bacteria None 07/04/25 07/04/25 07/05/25 19:51 23:01 04:39 WBC 8.2 RBC 4.65 Hgb 14.0 Hct 39.8 L MCV 86 MCH 30.1 MCHC 35.2 RDW Std Deviation 39.5 Plt Count 150 Neut % (Auto) 52 Lymph % (Auto) 37 [place] % (Auto) 8 Eos % (Auto) 2 Baso % (Auto) 1 Neut # (Auto) 4.3 Lymph # (Auto) 3.1 [place] # (Auto) 0.7 Eos # (Auto) 0.1 Baso # (Auto) 0.0 Immature Gran # (Auto) 0.05 H Absolute Nucleated RBC 0.00 Immature Gran % 1 H Nucleated RBC % 0 PT 10.9 INR 1.0 APTT 33.0 47.4 H D Sodium 139 Potassium 3.5 Chloride 109 H Carbon Dioxide 17.7 L Anion Gap 12 BUN 12 Creatinine 1.2 Estim Creat Clear Calc 47.3 L eGFR > 60 BUN/Creatinine Ratio 10 L Glucose [address] Glu mg/dL 235 H Hemoglobin A1c 9.8 H Calculated Osmolality 289 Lactic Acid 2.1 H Calcium 8.5 Corrected Calcium 8.7 Magnesium 1.6 Total Bilirubin 0.4 AST 21 ALT 38 Alkaline Phosphatase 135 H Troponin I 1.108 H* 0.936 H* 0.823 H* B-Natriuretic Peptide Total Protein 7.2 Albumin 3.8 Globulin 3.4 Albumin/Globulin Ratio 1.1 L Triglycerides 321 H Cholesterol 204 H LDL Cholesterol, Calc 107 HDL Cholesterol 33 L Cholesterol/HDL Ratio 6.2 Lipase TSH 6.55 H Free T4 1.63 Ur Collection Type Urine Color Urine Clarity Urine pH Ur Specific [place] Urine Protein Urine Glucose (UA) Urine Ketones Urine Blood Urine Nitrite Urine Bilirubin Urine Urobilinogen (Auto) Ur Leukocyte Esterase Urine RBC Urine WBC Ur Squamous Epith Cells Urine Bacteria Quality Measures Quality Measures none Advance care planning discussed with:: patient Assessment & Plan Assessment Current Active Medications: Generic Name Dose Route Start Last Admin Trade Name Freq PRN Reason Stop Dose Admin Acetaminophen 650 mg 07/04/25 22:27 Acetaminophen 325 Mg Tablet PO 08/03/25 22:26 Q6H PRN Fever >101.5 Ascorbic Acid 500 mg 07/05/25 09:00 07/05/25 09:00 Ascorbic Acid 250 Mg Tablet PO 08/04/25 08:59 500 mg QDAY OBDULIO Administration Aspirin 81 mg 07/05/25 09:00 07/05/25 09:00 Aspirin Ec 81 Mg Tabec PO 08/04/25 08:59 81 mg DAILY OBDULIO Administration Atorvastatin Calcium 80 mg 07/05/25 09:00 07/05/25 09:29 Atorvastatin Calcium 20 Mg Tablet PO 08/04/25 08:59 80 mg QDAY OBDULIO Administration Dextrose 25 ml 07/05/25 00:33 Dextrose 50%-Water Inj 50 Ml Syringe IV 08/04/25 00:32 Q15MIN PRN BG 50-70 responsive npo pt Dextrose 50 ml 07/05/25 00:33 Dextrose 50%-Water Inj 50 Ml Syringe IV 08/04/25 00:32 Q15MIN PRN BG <50 OR BG <70 & pt unresponsive Glucagon 1 mg 07/05/25 00:33 Glucagon Inj 1 Mg Vial IM Q15MIN PRN BG <70, and no IV access Heparin Sodium/Dextrose 25,000 unit in 250 mls @ 8.219 mls/hr 07/04/25 23:30 07/05/25 07:29 Heparin In D5w Ivpb IV 07/18/25 23:29 14 units/kg/hr .Q24H OBDULIO 9.589 mls/hr Protocol Titration 12 UNITS/KG/HR Magnesium Sulfate 4 gm in 50 mls @ 12.5 mls/hr 07/05/25 08:52 07/05/25 09:29 Magnesium Sulfate Ivpb IV 07/05/25 12:51 12.5 mls/hr X1 ONE Administration Insulin Degludec 10 unit 07/05/25 21:00 Insulin Degludec 5 Unit/0.05 Ml (Per 5 Units) SC 08/04/25 20:59 HS OBDULIO Insulin Human Lispro 0 unit 07/05/25 07:30 07/05/25 12:04 Insulin Lispro (Admelog) 1 Unit/0.01 Ml Unit SC 08/04/25 07:29 3 unit ACHS [facility] Administration Protocol Zinc Gluconate 50 mg 07/05/25 09:00 07/05/25 09:00 Zinc Gluconate 50 Mg Tablet PO 08/04/25 08:59 50 mg QDAY [facility] Administration Plan 69-year-old Citizen Of [place]-speaking male with a past medical history of insulin- dependent diabetes currently in acute rehab for an unspecified testicular lumpectomy procedure 2 weeks ago who presented to the ED in the evening of 07/04/2025 after syncopal episode. The patient mentions that he had vision changes and chest pain and then fainted. He was found to have a troponin of 1.071. EKG showed sinus tachycardia with a rate of [address] elevation greater than 1 mm in aVR, ST depressions in V3-V6 0.5-2 mm. Patient was admitted for STEMI equivalent. #STEMI Equivalent #Elevated Troponins * EKG showed sinus tachycardia with a rate of [address] elevation greater than 1 mm in aVR, ST depressions in V3-V6 0.5-2 mm * Diffuse ST segment depression with ST elevation in aVR indicates STEMI equivalent * Troponin 1.070 on arrival, followed by 1.108, followed by 0.936 * Patient mentioned that he had associated chest pain and also endorsed pain on inspiration * Chest x-ray showed mild prominence left ventricle, low suspicion of CHF * ASCVD score pending (need lipid panel data, ordered) * HEART score for Major Cardiac events: 8, risk of major adverse cardiac event 50-65%: * Moderately suspicious history (+1) * Significant ST deviation (+2) * Age over 65 (+2) * 1-2 risk factors (diabetes, hyperlipidemia?, Hypertension?) (+1) * Initial troponin greater than 3 times normal limit (+2) * Jaimee Score: 150, 21% probability of from admission to 6 months: * Age 69 * Close 125 * SBP 109 * Creatinine 1.3 * Cardiac arrest on admission: No * ST segment deviation on EKG: Yes * Abnormal cardiac enzymes: Yes * Killip Class: No CHF * ARTEM Score: 4, 20% risk at 14 days of all-cause mortality, new or recurrent MT, or severe recurrent ischemia requiring urgent revascularization: * Age over 65 (+1) * Greater than 3 CAD risk factors: Hypertension? Hypercholesterolemia? Diabetes (+1) * EKG ST changes greater than 0.5 mm (+1) * Positive cardiac marker (+1) -On heparin drip 12U/kg/hr -Asprin 81 q24h s/p 325 loading dose -s/p Clodipogrel 75mg -Atorvastatin 80mg q24h -NPO pending cardiac catheterization today by Dr. Gonzales -Follow up results and recommendations per cardiology -Daily CBC CMP #Insulin-Dependent Diabetes #Hyperglycemia Patient presented with glucose 363 Per the patient's facility, the patient takes insulin, pending med rec, dose unknown -Insulin sliding scale #Lactic Acidosis (Resolving) Patient presented with a lactic acid 2.3, downtrended to 2.1 Anion gap negative Normotensive, afebrile May be secondary to decreased peripheral perfusion secondary to acute STEMI May also consider UTI as a contributing factor May also consider syncopal episode, patient is a poor historian, unknown how long he was immobile, less likely -Clinically monitor s/p catheterization #Syncopal Episode Patient presented after a syncopal episode He described having vision changes followed by fainting followed by chest pain He has no memory of the event The facility was contacted and mentioned that the patient fainted during physical therapy May be secondary to STEMI -Treating STEMI as above #Elevated BNP #CHF Exacerbation Patient presented with a BNP of 333 Chest x-ray showed mild left ventricular prominence Patient has no signs of fluid overload on exam, no crackles, or peripheral edema -Evaluate s/p catheterization; no pitting edema, pulmonary crackles nor other signs of CHF exacerbation on exam in AM 12/ #Hyperlipidemia? Admission triglycerides 321 Cholsterol 204 -On atorvastatin 81 #Urological Surgery #Orchiectomy, Right #Wound Care patient arrived w/ packing s/p Orchiectomy done at [facility] w/ a scheduled follow up, confirmed by patient and records Wound left open w/ packing, for probable upcoming follow-up closure/intervention -Wound care ordered, will follow up AM rounds for changes #UTI - resolved #Testicular Infection - resolved Hospital management: Disposition: reevaluation after cardiac catheterization Fluids: none Diet: NPO pending procedure Lines: PIV DVT prophylaxis: SCD's CODE STATUS: full code/DNR Patient seen and discussed with attending physician Dr. Kash Zavala and senior resident Dr. Vincent Lantigua MD PGY-1 Attending Provider Attestation/Addendum I have examined the patient, reviewed labs and imaging findings, discussed the case with the resident(s), and reviewed entered orders. I agree with the plan of care as outlined in this note, with these additional summaries/recommendations: Patient seen at bedside. He reports his chest pain has relatively resolved. Patient diagnosed with NSTEMI. Likely type I versus less likely type II. Noted ST depressions on EKG. In-house cardiology consulted with plans for cardiac catheterization. Troponin peaked 1.108. LDL 107. A1c 9.8%. TSH 6.55. Status post loading doses of aspirin and Keppra. Continue daily aspirin 81 mg p.o. daily and atorvastatin 80 mg p.o. at bedtime. Continue Plavix 75 mg daily. Continue heparin gtt. and target APTT of 60 to 80 seconds. We will continue to control vascular risk factors. 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 Patient reports he has upcoming appointment with surgeon later this month. He reports the wound is usually packed daily and we will consult wound care. He appears to have completed appropriate antibiotic course for this. I do not notice any purulent discharge and appears to be healing. Continue basal and bolus insulin for uncontrolled diabetes mellitus type 2 with A1c 9.8%. Target blood sugar of 140- 180 while hospitalized. Diabetic education as A1c is not at goal. Pending home medication reconciliation. Patient updated on the plan and in agreement. All questions answered to satisfaction. Please see residents note for additional details and management. Dr. Lucas MD
--- NOTE | 2025-07-05 12:32 | ESCONSULT_ITS ---
HPI Data of Consult Patient: new to practice Consult date: 07/04/25 Requesting Physician: Xochitl Prescott MD Admitting Provider: Xochitl Prescott MD Attending Provider: Miguel Saldivar MD Primary Care Provider: Koby Morgan MD Consult Narrative Reason for consult: ACS Workup History of present illness: Mr. Avitia is a 69-year-old male with past medical history of hypertension, uncontrolled insulin-dependent diabetes mellitus diagnosed about a month ago, hyperlipidemia, status post I&D of scrotal abscess and debridement of Radha's gangrene of scrotum with White catheter placement from ESBL Klebsiella at [facility] completed antibiotics 06/30/2025, prostate problems and possible PAD with 50% stenosis of right common femoral artery on CT who presented to [facility] emergency department from [facility] after syncopal episode, per patient he was walking across the street when he was noted to be dizzy with generalized weakness and feelings of legs giving away witnessed by staff, patient was held by staff, did not sustain any fall, denies any trauma. Patient complained of mild chest discomfort during the episode unable to elaborate on the episode, currently denies any chest pain, palpitations, shortness of breath, headache, leg swelling and dizziness currently. 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 Reached out to patient's nephew who reiterated the story. ED course: Vitals on presentation heart rate 125 otherwise vitals within normal limits, labs show troponin 1.071, glucose 363, lactate 2.3, BNP 333 EKG on admission shows ST depression in lead I II V3?V5 and some ST elevation in aVR. Chest x-ray shows mild left ventricular prominence. Urinalysis shows protein 1+, glucose 4+, RBC 11, WBC 33 leukocyte esterase positive. Treatment given in ER was 8 units of regular insulin, 40 mg Lasix and 1 g of ceftriaxone. cc:: cc: Xochitl Prescott MD Review of Systems Review of Systems Systems Reviewed: All systems reviewed, normal except as documented Past Medical History Past Medical History Comments PMH COMMENT: PMH: Positive for hypertension, uncontrolled insulin-dependent diabetes mellitus diagnosed about a month ago, hyperlipidemia, status post I&D of scrotal abscess and debridement of Radha's gangrene of scrotum with White catheter placement from ESBL Klebsiella at [facility] completed antibiotics 06/30/2025, prostate problems and possible PAD with 50% stenosis of right common femoral artery on CT PSHx: I&D for scrotal abscess and debridement of Radha's gangrene Allergies: No known drug and food allergies Social history: -Smoking: Denies -Alcohol Use: Denies -Illicit Drug Use: Denies -Occupation: Retired Family History: Denies family history of heart disease Exam Vital Signs Temp Pulse Resp BP Pulse Ox O2 Del Method 97.6 F 107 H 17 99/63 96 Room Air 07/05/25 08:00 07/05/25 08:00 07/05/25 08:00 07/05/25 08:00 07/05/25 08:00 07/05/25 08:00 Narrative Exam Physical Exam General: Awake and in no acute distress. Conversational and non-toxic appearing. HEENT: Normocephalic, atraumatic, mucous membranes moist. Heart: Regular rate and rhythm, no murmurs. Lungs: Clear to auscultation with no wheezing or crackles. Abdomen: Soft, nondistended, nontender, positive bowel sounds. ?No guarding or rebound tenderness. Neurologic: Alert and oriented x3, no gross neurological deficit, and patient able to move all 4 extremities. Extremities: No edema. Skin: No rash or ecchymoses. Results Labs 07/05/25 04:39 07/05/25 04:39 Labs: Short CBC 07/04/25 07/05/25 Range/Units 15:41 04:39 WBC 8.4 8.2 (3.8-10.6) Thou/mm3 Hgb 13.6 14.0 (13.5-16.0) g/dL Hct 39.7 L 39.8 L (41.0-53.0) % Plt Count 145 150 (140-440) Thou/mm3 [facility] 07/04/25 07/05/25 15:41 04:39 Sodium 138 139 Potassium 3.8 3.5 Chloride 103 109 H Carbon Dioxide 21.7 17.7 L BUN 11 12 Creatinine 1.3 1.2 Glucose 363 H 323 H Calcium 8.8 8.5 Cardiac Enzymes 07/04/25 07/04/25 07/04/25 Range/Units 15:41 17:26 19:51 Troponin I 1.070 H* 1.095 H* 1.108 H* (0.0-0.045) ng/mL 07/04/25 07/05/25 Range/Units 23:01 04:39 Troponin I 0.936 H* 0.823 H* (0.0-0.045) ng/mL Liver Function 07/05/25 Range/Units 04:39 Total Bilirubin 0.4 (0.3-1.2) mg/dL AST 21 (0-34) U/L ALT 38 (10-49) U/L Alkaline Phosphatase 135 H (46-116) U/L Albumin 3.8 (3.4-4.8) gm/dL Urine 07/04/25 Range/Units 15:46 Urine Color Yellow (Lt Yel-Yel) Urine Clarity Clear (Clear/Hazy) Urine pH 6.0 (5.0-7.0) Ur Specific [place] 1.025 (1.001-1.035) Urine Protein 1+ A (Neg - Trace) Urine Glucose (UA) 4+ A (Negative) Quality Measures Quality Measures none Advance care planning discussed with:: patient and other Medications Home Medications and Allergies Home Medications ?Medication ?Instructions ?Recorded ?Confirmed ?Type ascorbic acid (vitamin C) 500 mg 500 mg PO DAILY 07/0507/05/25 History capsule Allergies Allergy/AdvReac Type Severity Reaction Status Date / Time No Known Allergies Allergy Verified 07/05/25 11:21 Visit Medications Acetaminophen (Acetaminophen 325 Mg Tablet) 650 mg PO Q6H PRN PRN Reason: Fever >101.5 Stop: 08/03/25 22:26 Ascorbic Acid (Ascorbic Acid 250 Mg Tablet) 500 mg PO QDAY [facility] Stop: 08/04/25 08:59 Last Admin: 07/05/25 09:00 Dose: 500 mg Aspirin (Aspirin Ec 81 Mg Tabec) 81 mg PO DAILY [facility] Stop: 08/04/25 08:59 Last Admin: 07/05/25 09:00 Dose: 81 mg Atorvastatin Calcium (Atorvastatin Calcium 20 Mg Tablet) 80 mg PO QDAY [facility] Stop: 08/04/25 08:59 Last Admin: 07/05/25 09:29 Dose: 80 mg Dextrose (Dextrose 50%-Water Inj 50 Ml Syringe) 25 ml IV Q15MIN PRN PRN Reason: BG 50-70 responsive npo pt Stop: 08/04/25 00:32 Dextrose (Dextrose 50%-Water Inj 50 Ml Syringe) 50 ml IV Q15MIN PRN PRN Reason: BG <50 OR BG <70 & pt unresponsive Stop: 08/04/25 00:32 Glucagon (Glucagon Inj 1 Mg Vial) 1 mg IM Q15MIN PRN PRN Reason: BG <70, and no IV access Heparin Sodium/Dextrose (Heparin In D5w Ivpb) 25,000 unit in 250 mls @ 8.219 mls/hr IV .Q24H [facility]; Protocol Stop: 07/18/25 23:29 Last Titration: 07/05/25 07:29 Dose: 14 units/kg/hr, 9.589 mls/hr Magnesium Sulfate (Magnesium Sulfate Ivpb) 4 gm in 50 mls @ 12.5 mls/hr IV X1 ONE Stop: 07/05/25 12:51 Last Admin: 07/05/25 09:29 Dose: 12.5 mls/hr Sodium Chloride (Ns 0.45%) 500 mls @ 100 mls/hr IV .Q5H [facility] Stop: 08/04/25 12:29 Insulin Degludec (Insulin Degludec 5 Unit/0.05 Ml (Per 5 Units)) 10 unit SC [facility] Stop: 08/04/25 20:59 Insulin Human Lispro (Insulin Lispro (Admelog) 1 Unit/0.01 Ml Unit) 0 unit SC [facility]; Protocol Stop: 08/04/25 07:29 Last Admin: 07/05/25 12:04 Dose: 3 unit Zinc Gluconate (Zinc Gluconate 50 Mg Tablet) 50 mg PO QDAY [facility] Stop: 08/04/25 08:59 Last Admin: 07/05/25 09:00 Dose: 50 mg Discontinued Medications Aspirin (Aspirin 325 Mg Tablet) 325 mg PO X1 ONE Stop: 07/04/25 22:34 Last Admin: 07/04/25 23:25 Dose: 325 mg Atorvastatin Calcium (Atorvastatin Calcium 20 Mg Tablet) 80 mg PO HS [facility] Stop: 08/04/25 20:59 Clopidogrel Bisulfate (Clopidogrel Bisulfate 75 Mg Tablet) 300 mg PO X1 ONE Stop: 07/04/25 22:34 Last Admin: 07/04/25 23:25 Dose: Not Given Clopidogrel Bisulfate (Clopidogrel Bisulfate 75 Mg Tablet) 75 mg PO DAILY [facility] Stop: 08/04/25 08:59 Ceftriaxone Sodium 1,000 mg/ (Lidocaine HCl 2.1 ml) 0 mg IM X1 ONE Stop: 07/04/25 20:50 Last Admin: 07/04/25 22:04 Dose: 2.1 mg Diphenhydramine HCl (Diphenhydramine Inj 50 Mg/Ml Vial) 50 mg IVP X1 ONE Stop: 07/05/25 12:24 Enoxaparin Sodium (Enoxaparin Sod Inj 40 Mg/0.4 Ml Syringe) 40 mg SC QDAY [facility] Stop: 07/19/25 08:59 Famotidine (Famotidine Inj 10 Mg/Ml Vial 2 Ml) 20 mg IVP X1 ONE Stop: 07/05/25 12:24 Furosemide (Furosemide Inj 10 Mg/Ml 4ml Vial) 40 mg IVP X1 ONE Stop: 07/04/25 20:49 Last Admin: 07/04/25 22:02 Dose: 40 mg Heparin Sodium (Porcine) (Heparin Sod Inj 5000 Unit/Ml Vial) 4,000 unit IV X1 ONE; Protocol Stop: 07/04/25 22:38 Last Admin: 07/04/25 23:56 Dose: 4,000 unit Heparin Sodium (Porcine) (Heparin Sod Inj 5000 Unit/Ml Vial) 2,000 unit IVP X1 ONE Stop: 07/05/25 07:15 Last Admin: 07/05/25 07:26 Dose: 2,000 unit Hydrocortisone Sodium Succinate (Hydrocortisone Sod Succ Inj 100 Mg 2 Ml Vial) 100 mg IV X1 ONE Stop: 07/05/25 12:24 Sodium Chloride (Ns) 1,000 mls @ 150 mls/hr IV .Q6H40M ONE Stop: 07/05/25 03:27 Last Infusion: 07/05/25 05:38 Dose: Infused Ceftriaxone Sodium/Dextrose (Rocephin/D5w 1gm Iv Premix) 1 gm in 50 mls @ 100 mls/hr IV QDAY [facility] Stop: 07/12/25 02:35 Last Admin: 07/05/25 02:38 Dose: Not Given Ceftriaxone Sodium/Dextrose (Rocephin/D5w 1gm Iv Premix) 1 gm in 50 mls @ 100 mls/hr IV HS [facility] Stop: 07/12/25 02:35 Potassium Chloride (Kcl Ivpb) 10 meq in 100 mls @ 100 mls/hr IV Q1H [facility] Stop: 07/05/25 11:05 Last Admin: 07/05/25 10:12 Dose: Not Given Insulin Human NPH (Insulin Nph 1 Unit/0.01 Ml (Per Unit)) 8 unit SC X1 ONE Stop: 07/04/25 20:49 Last Admin: 07/04/25 22:04 Dose: Not Given Insulin Human Regular (Insulin Hum Regular 1 Unit/0.01 Ml (Per Unit)) 8 unit SC X1 ONE Stop: 07/04/25 21:57 Last Admin: 07/04/25 22:01 Dose: 8 unit Potassium Chloride (Potassium Chloride 20 Meq Tabcr) 40 meq PO X1 ONE Stop: 07/05/25 06:07 Last Admin: 07/05/25 07:26 Dose: 40 meq Potassium Chloride (Potassium Chloride 20 Meq Tabcr) 40 meq PO X1 ONE Stop: 07/05/25 09:30 Last Admin: 07/05/25 10:07 Dose: 40 meq Assessment & Plan Plan Assessment and plan: Summary: Mr. Avitia is a 69-year-old male with past medical history of hypertension, uncontrolled insulin-dependent diabetes mellitus diagnosed about a month ago, hyperlipidemia, status post I&D of scrotal abscess and debridement of Radha's gangrene of scrotum with White catheter placement from ESBL Klebsiella at [facility] completed antibiotics 06/30/2025, prostate problems and possible PAD with 50% stenosis of right common femoral artery on CT who presented to [facility] emergency department from [facility] after syncopal episode. Patient had witnessed syncopal episode with mild chest discomfort, cardiology consulted for ACS workup. #ACS workup #NSTEMI type I > type II #Syncopal episode, chest discomfort Patient presented with witnessed syncopal episode with mild chest discomfort at [facility] when he was walking across the street, was held by staff and passed out, no fall/trauma. EKG shows ST depression in multiple leads and ST elevation in aVR On presentation troponin 1.071 >1.095 >1.108 > 0.936 BNP on presentation 333 Patient was given aspirin 325 x 1, Plavix 300 x 1 was started on heparin gtt. in the ER. CAD risk factors: Hypertension, uncontrolled insulin-dependent diabetes mellitus, hyperlipidemia TSH 6.55, free T4 within normal limits 1.63, hemoglobin A1c 9.8, lipid panel triglyceride 321, cholesterol 204, LDL 107, HDL 33 Recommendations: - Continue aspirin 81 mg daily, high intensity atorvastatin - Continue to trend troponins every 6 hours until downtrend is noted. - Heparin drip for anticoagulation given concern of ACS. - Beta marsha if hemodynamically stable. Oxygen as needed and pain control with morphine if needed. - Echo ordered to rule out any regional wall motion abnormalities, evaluate LV function, RV function, diastolic function and any valvular abnormalities. - Given his risk factors including age, hypertension, hyperlipidemia, smoking, diabetes mellitus, patient is at increased risk for CAD and will need further ischemic evaluation. - Discussed the risk and patient alternatives of performing the cardiac catheterization including the risk of bleeding, patient and family heart attack, stroke and in detail with the. Patient agreeable for the procedure and provided the consent for the same. - Will keep the patient n.p.o. and plan for cardiac catheterization today afternoon. #Hypertension Patient's blood pressure within normal limits, continue to monitor #Hyperlipidemia Triglyceride 331, cholesterol 204, LDL 107, HDL 33 - Continue high intensity atorvastatin # #Insulin-dependent diabetes mellitus, uncontrolled, A1c 9.8 Need strict control of DM and primary team managing it. #Status post I&D scrotal abscess and debridement of Radha's gangrene of scrotum with White catheter placement #History of ESBL Klebsiella #Possible PAD #Normal anion gap metabolic acidosis, hyperchloremic acidosis #Suspected UTI - Management per primary team Thank you for the consult and allowing to participate in the care of the patient. Cardiology will continue to follow. Case discussed with Attending Physician Dr. Miguel Mary MD Internal Medicine PGY-2 Disclaimer: This note was dictated by speech recognition. Minor errors in body and frame man may be present due to voice recognition software. Attending Provider Attestation/Addendum I have personally seen and examined the patient separately on the above date of service and discussed the plan of care with the resident. I reviewed the resident Dr.Tanveer Mary consultation progress note and agree with the resident findings and plan in the note above and have also edited the documentation to reflect my findings and plan. Miguel Saldivar M.D. Interventional Cardiology
--- NOTE | 2025-07-05 13:33 | PC.NURSE ---
notified cydney rae (wound nurse) of patients scrotum wound that need to be consulted. Cydney state she will see him this afternoon once hes back upstairs.
--- NOTE | 2025-07-05 15:54 | ESOP_ITS ---
Cardiac Cath Procedure Procedure Name Date of procedure: 07/05/25 INSURANCE PROCESSING CLERK: Miguel Saldivar MD PROCEDURE PERFORMED: 1. Successful complex PCI performed of the mid LCx with 2.5 x 12 mm Redbird stent with excellent results and no complications. 2. Left heart cardiac catheterization- Left and right coronary angiograms with LVEDP measurement and left ventriculogram 3. Ultrasound-guided access of the right radial artery 4. Conscious sedation for 30 minutes.. Procedure Narrative HISTORY AND INDICATIONS: Mr. Avitia is a 69-year-old male with past medical history of hypertension, uncontrolled insulin-dependent diabetes mellitus diagnosed about a month ago, hyperlipidemia, status post I&D of scrotal abscess and debridement of Radha's gangrene of scrotum with White catheter placement from ESBL Klebsiella at [facility] completed antibiotics 06/30/2025, prostate problems and possible PAD with 50% stenosis of right common femoral artery on CT who presented to [facility] emergency department from [facility] after syncopal episode. Patient had witnessed syncopal episode with mild chest discomfort, cardiology consulted for ACS workup. EKG shows ST depression in multiple leads and ST elevation in aVR. Troponins were elevated to 1.1 and Patient was brought in for a cardiac catheterization. Patient was explained the risk benefits and alternatives of performing a left heart cardiac catheterization including the risk of bleeding, heart attack, stroke and in detail and the agreeable for the procedure. Consent signed, placed in the chart and H&P updated. DESCRIPTION OF PROCEDURE: The patient was brought to the cardiac catheterization lab and all asceptic precautions were followed. Patient was given 1 Mg of Versed and 50 mcg of fentanyl for moderate conscious sedation. 2 mL of lidocaine was given in the right wrist. The right radial artery was accessed via the ultrasound guidance as well as micropuncture technique. A 6 Nigerien glide sheath was introduced. We then used a 5 [place]ien TIG 4 catheter to perform the left and right coronary angiograms as well as a left ventriculogram which showed the following findings. 1. Left ventricular ejection fraction was normal at 60 to 65% without any regional wall motion abnormalities. LVEDP was normal at 7 mmHg. There was no significant transvalvular aortic gradient. 2. Right dominant circulation 3. Left main artery is a large-caliber vessel gives rise to LAD, LCX and without any significant disease. 4. LAD is a large sized artery with mild 20-30% stenosis of mid segment, gives rise to a medium size diagonal and without show any significant disease. 5. LCx is a large sized artery with 80-90% stenosis of mid segment, gives rise to a medium OM1 and small OM2 without any significant disease. 6. RCA is a large artery with minimal luminal irregularities, gives rise to a medium RPDA with 40-50% stenosis at ostial segment and RPL without any significant disease. INTERVENTION: A 6 [place]ien EBU 3.5 guide was used to engage the left circunflex artery. Patient was given weight-based heparin and ACT was greater than 250 although the procedure. Run-through guidewire was used to cross the lesion in the mid LCx without any complications. We then use a second run-through wire as sentinel wire to adjust the position of the balloon or the stent of the mid LCx lesion. A 2.5 x 12 mm semicompliant balloon was used for predilatation and was predilated multiple times at 6, 8 and 10 and 12 rik respectively. We then used 2.5 x 12 mm Redbird stent and carefully positioned in the mid segment and multiple images were taken. The Yasmani stent was deployed at 12 and 14 rik for a total of 45 seconds and then post dilation was performed. Excellent results achieved with ARTEM-3 flow and no other complications. Final angiographic pictures were taken and all interventional equipment was removed. ACC data: Preprocedure:- Mid LCx with 80 to 90% stenosis with ARTEM-3 flow Post procedure: Mid LCx with 0% residual stenosis with ARTEM-3 flow Patient was already on aspirin and Brilinta 180 MG was given. A radial band was used to achieve the hemostasis of the right radial artery access. Patient will be monitored in the cardiac [place] Continuous Churn for the next 2 to 3 hours and will be discharged home later if hemodynamically stable. Complications: None Specimens: None Blood loss: Estimated 10 ML Summary/findings: 1. LHC showed severe CAD with 80-90% stenosis of Mid LCx, 20% stenosis of mid LAD, 40-50% stenosis of ostial RPDA, and rest of the coronaries with minimal luminal irregularities. 2. LVEF was normal at 60-65% with normal LVEDP. No significant transvalvular aortic gradient noted. 3. Successful complex PCI performed of the mid LCx with 2.5 x 12 mm Yasmani stent with excellent results and no complications. Recommendations: 1. Recommended dual antiplatelet therapy with aspirin 81 mg once daily lifetime and Brilinta 90 mg twice daily for at least 1 year. High intensity statin and beta-blockers to be continued 2. Recommend aggressive risk factor modification 3. Patient recommended not to lift any weight more than 5 to 10 pounds for the next 7 days and follow-up with me in the office in 7 days. Miguel Saldivar MD Interventional Cardiology.
--- NOTE | 2025-07-05 17:20 | PC.NURSE ---
hand off report given to jacquelin rae. patient transferred back to room via gurney by anurag rae. patient alert and oriented. gcs of 15. site is flat, nontender, soft, and no signs of hematoma. dressing is clean dry and intact.
[2025-07-05] MEDS: INSULIN DEGLUDEC 5 UNIT/0.05 ML (PER 5 UNITS) 10 UNIT SC (20:50)
[2025-07-05] MEDS: TICAGRELOR 90 MG TABLET PO (20:53)
[2025-07-06] VITALS (9 sets, daily range): BP systolic 123–138; BP diastolic 80–91; PULSE 88–102; RESP 16–21; TEMP 36.2–37.3; O2SAT 96–100; BMI 25.5
[2025-07-06 05:49] LABS: Basophils # (Auto) 0.1 Thou/mm3 (0.0-0.2); Basophils % (Auto) 1 % (0-2.5); Eosinophils # (Auto) 0.2 Thou/mm3 (0.0-0.5); Eosinophils % (Auto) 2 % (0-10); Hematocrit 38.2 % (41.0-53.0); Hemoglobin 12.8 g/dL (13.5-16.0); Immature Granulocytes Auto 0.04 Thou/mm3 (0.00-0.00); Lymphocytes # (Auto) 1.9 Thou/mm3 (1.0-4.8); Lymphocytes % (Auto) 25 % (10-50); Mean Corpuscular HGB Conc 33.5 g/dl (31.0-37.0); Mean Corpuscular Hemoglobin 29.1 pg (25.0-35.0); Mean Corpuscular Volume 87 fL (80-100); Monocytes # (Auto) 0.5 Thou/mm3 (0.0-0.8); Monocytes % (Auto) 7 % (0-12); Neutrophils # (Auto) 4.8 Thou/mm3 (1.8-7.7); Neutrophils % (Auto) 64 % (37-80); Nucleated Red Blood Cell # 0.00 Thou/mm3 (0.00-0.00); Nucleated Red Blood Cell % 0 /100 WBC (0); Platelet Count 160 Thou/mm3 (140-440); RDW Standard Deviation 40.7 fL (35.1-43.9); Red Blood Count 4.40 Miln/mm3 (4.50-5.90); White Blood Count 7.5 Thou/mm3 (3.8-10.6)
[2025-07-06 06:16] LABS: INR 1.0 (0.9-1.3); Partial Thromboplastin Time 31.3 Seconds (22.0-36.0); Prothrombin Time 10.7 Seconds (9.0-12.2)
[2025-07-06 06:20] LABS: Alanine Aminotransferase 31 U/L (10-49); Albumin, Serum 3.6 gm/dL (3.4-4.8); Albumin/Globulin Ratio 1.2 (1.2-2.2); Alkaline Phosphatase 118 U/L (46-116); Anion Gap 13 (7-16); Aspartate Amino Transferase 20 U/L (0-34); BUN/Creatinine Ratio 10 Ratio (12-20); Bilirubin,Total 0.7 mg/dL (0.3-1.2); Blood Urea Nitrogen 11 mg/dL (9-23); Calcium 8.3 mg/dL (8.3-10.6); Calcium (Corrected) 8.6 mg/dL (8.5-10.1); Carbon Dioxide 19.3 mMol/L (20.0-31.0); Chloride 109 mMol/L (98-107); Creatinine (Component) 1.1 mg/dL (0.6-1.3); Estimated Creatinine Clearance 51.6 mL/min (>60); Globulin 3.0 gm/dL (2.3-3.5); Glucose 163 mg/dL (74-106); Osmolality,Calculated 284 (275-295); Phosphorous 3.4 mg/dL (2.4-5.1); Potassium 4.0 mMol/L (3.4-5.1); Sodium 141 mMol/L (136-145); Total Protein 6.6 gm/dL (5.7-8.2); eGFR > 60 See Note
[2025-07-06] MEDS: ASCORBIC ACID 250 MG TABLET 500 MG PO (08:56)
[2025-07-06] MEDS: ASPIRIN EC 81 MG TABEC PO (08:56)
[2025-07-06] MEDS: ATORVASTATIN CALCIUM 20 MG TABLET 80 MG PO (08:56)
[2025-07-06] MEDS: ZINC GLUCONATE 50 MG TABLET PO (08:57)
[2025-07-06] MEDS: TICAGRELOR 90 MG TABLET PO (08:57)
--- NOTE | 2025-07-06 11:05 | PD.HHPROG ---
Documentation for date of: 07/06/25 Subjective - Hospitalist Subjective Interval history: Patient seen at bedside. No acute overnight events. This morning patient is endorsing 8/9 out of 10 chest pain. Located in his left chest. Pain exacerbated by movement and respirations. Patient underwent cardiac catheterization yesterday and stent was placed. We will continue DAPT. Blood pressure stable. Afebrile. Pulse 88. O2 sat 98% on 2 L nasal cannula. Patient denies headache, cough, nausea/vomiting, shortness of breath, palpitations, abdominal pain, and no GI This time. Review of Systems Review of Systems Systems Reviewed: All systems reviewed, normal except as documented Exam Vital Signs Temp Pulse Resp BP Pulse Ox O2 Del Method O2 Flow Rate 98.0 F 88 20 128/84 98 Nasal Cannula 2 07/06/25 08:00 07/06/25 08:00 07/06/25 08:00 07/06/25 08:00 07/06/25 08:00 07/06/25 08:00 07/06/25 08:00 Narrative General: Seen resting, in hospital, no acute distress HEENT: NC/AT, mucous membranes moist Cardiovascular: regular rate and rhythm, S1/S2 present, no murmurs appreciated Pulmonary: clear to auscultation bilaterally, no rales/rhonchi/wheezes Abdominal: soft, nontender, present bowel sounds Musculoskeletal: no peripheral edema : open wound on scrotum, packed, no purulent discharge noted, nontender Skin: Warm, well-perfused Objective - Hospitalist Labs Diagram: 07/06/25 05:02 07/06/25 05:02 Labs: Laboratory Results - last 24 hr 07/06/25 05:02 WBC 7.5 RBC 4.40 L Hgb 12.8 L Hct 38.2 L MCV 87 MCH 29.1 MCHC 33.5 RDW Std Deviation 40.7 Plt Count 160 Neut % (Auto) 64 Lymph % (Auto) 25 [place] % (Auto) 7 Eos % (Auto) 2 Baso % (Auto) 1 Neut # (Auto) 4.8 Lymph # (Auto) 1.9 [place] # (Auto) 0.5 Eos # (Auto) 0.2 Baso # (Auto) 0.1 Immature Gran # (Auto) 0.04 H Absolute Nucleated RBC 0.00 Immature Gran % 1 H Nucleated RBC % 0 PT 10.7 INR 1.0 APTT 31.3 D Sodium 141 Potassium 4.0 D Chloride 109 H Carbon Dioxide 19.3 L Anion Gap 13 BUN 11 Creatinine 1.1 Estim Creat Clear Calc 51.6 L eGFR > 60 BUN/Creatinine Ratio 10 L Glucose 163 H D Calculated Osmolality 284 Calcium 8.3 Corrected Calcium 8.6 Phosphorus 3.4 Total Bilirubin 0.7 AST 20 ALT 31 Alkaline Phosphatase 118 H Total Protein 6.6 Albumin 3.6 Globulin 3.0 Albumin/Globulin Ratio 1.2 Assessment & Plan Plan: Patient is a 69-year-old [place]-speaking male with a past medical history of DMII, testicular lumpectomy procedure 2 weeks ago who presented to the ED in the evening of 07/04/2025 after syncopal episode. The patient mentions that he had vision changes and chest pain and then fainted. He was found to have a troponin of 1.071. EKG showed sinus tachycardia with a rate of [address] elevation greater than 1 mm in aVR, ST depressions in V3-V6 0.5-2 mm. #NSTEMI Type I #Syncope Admission EKG: sinus tachycardia with a rate of [address] elevation greater than 1 mm in aVR, ST depressions in V3-V6 0.5-2 mm Troponin peaked 1.108 syncope most likely secondary to myocardial infraction, Chest x-ray showed mild prominence left ventricle, low suspicion of CHF HEART score for Major Cardiac events: 8, risk of major adverse cardiac event 50-65%: Jaimee Score: 150, 21% probability of from admission to 6 months: ARTEM Score: 4, 20% risk at 14 days of all-cause mortality, new or recurrent [place], or severe recurrent ischemia requiring urgent revascularization: - Plan: Status post cardiac catheterization 07/05/2025 with stent placement LCX. Continue aspirin 81 mg p.o. daily and Brilinta 90 mg p.o. twice daily for 1 year. Continue statin therapy and we will attempt to institute beta-marsha as tolerated. Status post heparin GTT. Patient is endorsing relatively moderate to severe chest pain today rated 8/9 out of 10. Appears more pleuritic and positional in nature. Order low-dose morphine & continue to monitor on telemetry. Continue cardiac diet. Anticipate discharge in the next 24 to 48 hours. Continue to control vascular risk factors. #Insulin-Dependent Diabetes #Hyperglycemia Patient presented with glucose 363 A1C 9.8% - Plan: A1c not at goal. Continue basal and bolus insulin with Accu-Cheks. Target blood sugar 140-180 while hospitalized. #History of Radha's gangrene of scrotum with White catheter placement #History of ESBL Klebsiella Status post I&D scrotal abscess and debridement at outside hospital with Orchiectomy, Right -Plan: Per records patient received appropriate antibiotic course. He has follow-up with urology this month. Continue in-house wound care and daily packing. #Lactic Acidosis- Resolved Patient presented with a lactic acid 2.3, downtrended to 2.1 - Plan: Resolved. No further intervention needed at this time. # Dyslipidemia LDL 108 -Plan: Continue high intensity statin Hospital management: Fluids: none Diet: Cardiac diet Lines: PIV DVT prophylaxis: SCD's/heparin gtt CODE STATUS: full code Dr. Lucas MD Time Spent with Patient Time: Total time spent is greater than 50% in coordination of care (as documented) at patient's floor/unit and/or counseling patient: Time with patient: 25 - 35 minutes Reason for Continued Stay Reason for continued stay: acute coronary syndrome and IV pain control Quality Measures Quality Measures none Advance care planning discussed with:: patient
[2025-07-06] MEDS: INSULIN LISPRO (AdmeLOG) 1 UNIT/0.01 ML UNIT SC ×2 (12:08→20:19)
--- NOTE | 2025-07-06 12:32 | PC.SS ---
rounding note: Resident tania Cruz. 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 Stent placed. D/c within 1-2 days per physician.
--- NOTE | 2025-07-06 15:02 | ESPR_ITS ---
Documentation for date of: 07/06/25 Subjective Subjective Interval history: Mr. Avitia is a 69-year-old male with past medical history of hypertension, uncontrolled insulin-dependent diabetes mellitus diagnosed about a month ago, hyperlipidemia, status post I&D of scrotal abscess and debridement of Radha's gangrene of scrotum with White catheter placement from ESBL Klebsiella at [facility] completed antibiotics 06/30/2025, prostate problems and possible PAD with 50% stenosis of right common femoral artery on CT who presented to [facility] emergency department from [facility] after syncopal episode, per patient he was walking across the street when he was noted to be dizzy with generalized weakness and feelings of legs giving away witnessed by staff, patient was held by staff, did not sustain any fall, denies any trauma. Patient complained of mild chest discomfort during the episode unable to elaborate on the episode, currently denies any chest pain, palpitations, shortness of breath, headache, leg swelling and dizziness currently. 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 Reached out to patient's nephew who reiterated the story. ED course: Vitals on presentation heart rate 125 otherwise vitals within normal limits, labs show troponin 1.071, glucose 363, lactate 2.3, BNP 333 EKG on admission shows ST depression in lead I II V3?V5 and some ST elevation in aVR. Chest x-ray shows mild left ventricular prominence. Urinalysis shows protein 1+, glucose 4+, RBC 11, WBC 33 leukocyte esterase positive. Treatment given in ER was 8 units of regular insulin, 40 mg Lasix and 1 g of ceftriaxone. 07/06/25 Patient seen and examined at bedside. No new cardiac complains. Patient had successful PCI of mid LCx on 07/05/25 as noted below. Patient was given aspirin and brillinta, will change brillinta to plavix today, recommend 300 mg of plavix x1 after discontinuing brillinta today. And start plavix 75 mg once daily for tomorrow. Recommend to start metoprolol XL 25 once daily and will start losartan as outpatient if BP is high. Cath done 07/05/25 showed severe CAD with 80-90% stenosis of Mid LCx, 20% stenosis of mid LAD, 40-50% stenosis of ostial RPDA, and rest of the coronaries with minimal luminal irregularities. LVEF was normal at 60-65% with normal LVEDP. No significant transvalvular aortic gradient noted. Successful complex PCI performed of the mid LCx with 2.5 x 12 mm [place] stent with excellent results and no complications. Echo 07/05/25 2. Left ventricle size is normal and systolic function is normal. Estimated ejection fraction is 50-55%. Mild LVH. There is stage 1 diastolic function. 3. Right ventricle chamber size is normal and systolic function is reduced. Estimated RVSP is 44 mmHg with RAP 3. Severe HTN. 4. There is mild mitral, tricuspid and pulmonic valve regurgitation. 5. There is mild aortic valve sclerosis. Trace and mild aortic regurgitation. 6. Bubble study negative for any PFO or ASD. Exam Vital Signs Temp Pulse Resp BP Pulse Ox O2 Del Method O2 Flow Rate 98.4 F 100 17 129/86 H 96 Nasal Cannula 2 07/06/25 12:00 07/06/25 12:00 07/06/25 12:00 07/06/25 12:00 07/06/25 12:00 07/06/25 08:00 07/06/25 08:00 Narrative Exam General: Awake and in no acute distress. Conversational and non-toxic appearing. HEENT: Normocephalic, atraumatic, mucous membranes moist. Heart: Regular rate and rhythm, no murmurs. Lungs: Clear to auscultation with no wheezing or crackles. Abdomen: Soft, nondistended, nontender, positive bowel sounds. ?No guarding or rebound tenderness. Neurologic: Alert and oriented x3, no gross neurological deficit, and patient able to move all 4 extremities. Extremities: No edema. Skin: No rash or ecchymoses. Objective Labs 07/06/25 05:02 07/06/25 05:02 Labs: Laboratory Results - last 24 hr 07/06/25 05:02 WBC 7.5 RBC 4.40 L Hgb 12.8 L Hct 38.2 L MCV 87 MCH 29.1 MCHC 33.5 RDW Std Deviation 40.7 Plt Count 160 Neut % (Auto) 64 Lymph % (Auto) 25 [place] % (Auto) 7 Eos % (Auto) 2 Baso % (Auto) 1 Neut # (Auto) 4.8 Lymph # (Auto) 1.9 [place] # (Auto) 0.5 Eos # (Auto) 0.2 Baso # (Auto) 0.1 Immature Gran # (Auto) 0.04 H Absolute Nucleated RBC 0.00 Immature Gran % 1 H Nucleated RBC % 0 PT 10.7 INR 1.0 APTT 31.3 D Sodium 141 Potassium 4.0 D Chloride 109 H Carbon Dioxide 19.3 L Anion Gap 13 BUN 11 Creatinine 1.1 Estim Creat Clear Calc 51.6 L eGFR > 60 BUN/Creatinine Ratio 10 L Glucose 163 H D Calculated Osmolality 284 Calcium 8.3 Corrected Calcium 8.6 Phosphorus 3.4 Total Bilirubin 0.7 AST 20 ALT 31 Alkaline Phosphatase 118 H Total Protein 6.6 Albumin 3.6 Globulin 3.0 Albumin/Globulin Ratio 1.2 Assessment & Plan A&P Narrative Mr. Avitia is a 69-year-old male with past medical history of hypertension, uncontrolled insulin-dependent diabetes mellitus diagnosed about a month ago, hyperlipidemia, status post I&D of scrotal abscess and debridement of Radha's gangrene of scrotum with White catheter placement from ESBL Klebsiella at [facility] completed antibiotics 06/30/2025, prostate problems and possible PAD with 50% stenosis of right common femoral artery on CT who presented to [facility] emergency department from [facility] after syncopal episode. Patient had witnessed syncopal episode with mild chest discomfort, cardiology consulted for ACS workup. #CAD s/p PCI to mid LCx 07/05/25 - NSTEMI presentation #Syncopal episode Patient presented with witnessed syncopal episode with mild chest discomfort at [facility] when he was walking across the street, was held by staff and passed out, no fall/trauma. EKG shows ST depression in multiple leads and ST elevation in aVR On presentation troponin 1.071 >1.095 >1.108 > 0.936 BNP on presentation 333 Patient was given aspirin 325 x 1, Plavix 300 x 1 was started on heparin gtt. in the ER. CAD risk factors: Hypertension, uncontrolled insulin-dependent diabetes mellitus, hyperlipidemia TSH 6.55, free T4 within normal limits 1.63, hemoglobin A1c 9.8, lipid panel triglyceride 321, cholesterol 204, LDL 107, HDL 33 Recommendations: - Continue aspirin 81 mg daily, high intensity atorvastatin - Continue to trend troponins every 6 hours until downtrend is noted. - Heparin drip for anticoagulation given concern of ACS. - Beta marsha if hemodynamically stable. Oxygen as needed and pain control with morphine if needed. 07/06/25 Patient seen and examined at bedside. No new cardiac complains. Patient had successful PCI of mid LCx on 07/05/25 as noted below. Patient was given aspirin and brillinta, will change brillinta to plavix today, recommend 300 mg of plavix x1 after discontinuing brillinta today. And start plavix 75 mg once daily for tomorrow. Recommend to start metoprolol XL 25 once daily and will start losartan as outpatient if BP is high. Cath done 07/05/25 showed severe CAD with 80-90% stenosis of Mid LCx, 20% stenosis of mid LAD, 40-50% stenosis of ostial RPDA, and rest of the coronaries with minimal luminal irregularities. LVEF was normal at 60-65% with normal LVEDP. No significant transvalvular aortic gradient noted. Successful complex PCI performed of the mid LCx with 2.5 x 12 mm [place] stent with excellent results and no complications. 1. Recommended dual antiplatelet therapy with aspirin 81 mg once daily lifetime and Brilinta 90 mg twice daily for at least 1 year. High intensity statin and beta-blockers to be continued 2. Recommend aggressive risk factor modification 3. Patient recommended not to lift any weight more than 5 to 10 pounds for the next 7 days and follow-up with me in the office in 7 days. Echo 07/05/25 2. Left ventricle size is normal and systolic function is normal. Estimated ejection fraction is 50-55%. Mild LVH. There is stage 1 diastolic function. 3. Right ventricle chamber size is normal and systolic function is reduced. Estimated RVSP is 44 mmHg with RAP 3. Severe HTN. 4. There is mild mitral, tricuspid and pulmonic valve regurgitation. 5. There is mild aortic valve sclerosis. Trace and mild aortic regurgitation. 6. Bubble study negative for any PFO or ASD. #Hypertension Patient's blood pressure within normal limits, continue to monitor #Hyperlipidemia Triglyceride 331, cholesterol 204, LDL 107, HDL 33 - Continue high intensity atorvastatin # #Insulin-dependent diabetes mellitus, uncontrolled, A1c 9.8 Need strict control of DM and primary team managing it. #Status post I&D scrotal abscess and debridement of Radha's gangrene of scrotum with White catheter placement #History of ESBL Klebsiella #Possible PAD #Normal anion gap metabolic acidosis, hyperchloremic acidosis #Suspected UTI - Management per primary team Management of rest of the medical conditions as per primary team and other consultants. Thank you for the consult and allowing me to participate in the care of the patient. Cardiology will continue to follow. Miguel Saldivar M.D. Interventional Cardiology Time Spent With Patient Time: Total time spent is greater than 50% in coordination of care (as documented) at patient's floor/unit and/or counseling patient:
[2025-07-06] MEDS: CLOPIDOGREL BISULFATE 75 MG TABLET 300 MG PO (16:04)
[2025-07-06] MEDS: CLOTRIMAZOLE CR 1% 30 GM TUBE TOP (20:20)
[2025-07-06] MEDS: INSULIN DEGLUDEC 5 UNIT/0.05 ML (PER 5 UNITS) 10 UNIT SC (20:20)
[2025-07-07] VITALS: BP 133/83; PULSE 87; PULSE 89; RESP 21; TEMP 36.6; O2SAT 96
[2025-07-07 04:00] VITALS: BP 133/88; PULSE 88; RESP 18; TEMP 36.8; O2SAT 95
[2025-07-07 06:00] VITALS: BMI 26.4
[2025-07-07 07:04] LABS: Basophils # (Auto) 0.1 Thou/mm3 (0.0-0.2); Basophils % (Auto) 1 % (0-2.5); Eosinophils # (Auto) 0.1 Thou/mm3 (0.0-0.5); Eosinophils % (Auto) 2 % (0-10); Hematocrit 38.8 % (41.0-53.0); Hemoglobin 13.3 g/dL (13.5-16.0); Immature Granulocytes Auto 0.04 Thou/mm3 (0.00-0.00); Lymphocytes # (Auto) 2.3 Thou/mm3 (1.0-4.8); Lymphocytes % (Auto) 33 % (10-50); Mean Corpuscular HGB Conc 34.3 g/dl (31.0-37.0); Mean Corpuscular Hemoglobin 29.8 pg (25.0-35.0); Mean Corpuscular Volume 87 fL (80-100); Monocytes # (Auto) 0.5 Thou/mm3 (0.0-0.8); Monocytes % (Auto) 7 % (0-12); Neutrophils # (Auto) 4.1 Thou/mm3 (1.8-7.7); Neutrophils % (Auto) 57 % (37-80); Nucleated Red Blood Cell # 0.00 Thou/mm3 (0.00-0.00); Nucleated Red Blood Cell % 0 /100 WBC (0); Platelet Count 176 Thou/mm3 (140-440); RDW Standard Deviation 40.5 fL (35.1-43.9); Red Blood Count 4.47 Miln/mm3 (4.50-5.90); White Blood Count 7.1 Thou/mm3 (3.8-10.6)
[2025-07-07 07:27] LABS: Alanine Aminotransferase 30 U/L (10-49); Albumin, Serum 3.9 gm/dL (3.4-4.8); Albumin/Globulin Ratio 1.3 (1.2-2.2); Alkaline Phosphatase 118 U/L (46-116); Anion Gap 12 (7-16); Aspartate Amino Transferase 22 U/L (0-34); BUN/Creatinine Ratio 11 Ratio (12-20); Bilirubin,Total 0.5 mg/dL (0.3-1.2); Blood Urea Nitrogen 12 mg/dL (9-23); Calcium 9.1 mg/dL (8.3-10.6); Calcium (Corrected) 9.2 mg/dL (8.5-10.1); Carbon Dioxide 20.2 mMol/L (20.0-31.0); Chloride 110 mMol/L (98-107); Creatinine (Component) 1.1 mg/dL (0.6-1.3); Estimated Creatinine Clearance 51.6 mL/min (>60); Globulin 3.0 gm/dL (2.3-3.5); Glucose 135 mg/dL (74-106); Osmolality,Calculated 284 (275-295); Phosphorous 3.8 mg/dL (2.4-5.1); Potassium 4.0 mMol/L (3.4-5.1); Sodium 142 mMol/L (136-145); Total Protein 6.9 gm/dL (5.7-8.2); eGFR > 60 See Note
[2025-07-07 08:00] VITALS: BP 118/77; PULSE 86; PULSE 87; RESP 18; TEMP 37.2; O2SAT 95
[2025-07-07] MEDS: ASCORBIC ACID 250 MG TABLET 500 MG PO (08:44)
[2025-07-07] MEDS: ATORVASTATIN CALCIUM 20 MG TABLET 80 MG PO (08:44)
[2025-07-07] MEDS: ASPIRIN EC 81 MG TABEC PO (08:46)
[2025-07-07] MEDS: CLOTRIMAZOLE CR 1% 30 GM TUBE TOP (08:47)
[2025-07-07] MEDS: ZINC GLUCONATE 50 MG TABLET PO (08:47)
[2025-07-07] MEDS: CLOPIDOGREL BISULFATE 75 MG TABLET PO (08:47)
[2025-07-07 09:42] VITALS: PULSE 89; RESP 18; RESP 94
[2025-07-07 10:17] LABS: Magnesium 1.8 mg/dL (1.6-2.6)
--- NOTE | 2025-07-07 10:48 | ESPR_ITS ---
<Statement entered by Rosangela Mary MD - 07/07/25 12:19> Patient was seen and examined by me personally. I have reviewed the below documentation by the team resident and agree with its findings. Mr. Avitia is a 69-year-old male with past medical history of hypertension, uncontrolled insulin-dependent diabetes mellitus diagnosed about a month ago, hyperlipidemia, status post I&D of scrotal abscess and debridement of Radha's gangrene of scrotum with White catheter placement from ESBL Klebsiella at [facility] completed antibiotics 06/30/2025, prostate problems and possible PAD with 50% stenosis of right common femoral artery on CT who presented to [facility] emergency department from [facility] after syncopal episode, had a witnessed episode at [facility] with mild chest discomfort during the episode. Due to patient's presenting symptoms patient underwent PCI of mid LCx were 80 to 90% of stenosis was noted on 07/05/2025 otherwise disease burden noted in mid LAD 20%, RPDA 40 to 50%. LVEF during cardiac cath 60 to 65% with normal LVEDP. Patient seen at bedside today, no current complaints, patient currently tolerating aspirin and Plavix well, we recommend introducing metoprolol if blood pressures permissible. Continue atorvastatin 80 mg daily, diabetes control by primary team. Thank you for the consult and allowing to participate in the care of the patient. Cardiology will continue to follow. Case discussed with Attending Physician Dr. Miguel Mary MD Internal Medicine PGY-2 Disclaimer: This note was dictated by speech recognition. Minor errors in chief of staff may be present due to voice recognition software. Documentation for date of: 07/07/25 Subjective Subjective Interval history: Mr. Avitia is a 69-year-old male with past medical history of hypertension, uncontrolled insulin-dependent diabetes mellitus diagnosed about a month ago, hyperlipidemia, status post I&D of scrotal abscess and debridement of Radha's gangrene of scrotum with White catheter placement from ESBL Klebsiella at [facility] completed antibiotics 06/30/2025, prostate problems and possible PAD with 50% stenosis of right common femoral artery on CT who presented to [facility] emergency department from [facility] after syncopal episode, per patient he was walking across the street when he was noted to be dizzy with generalized weakness and feelings of legs giving away witnessed by staff, patient was held by staff, did not sustain any fall, denies any trauma. Patient complained of mild chest discomfort during the episode unable to elaborate on the episode, currently denies any chest pain, palpitations, shortness of breath, headache, leg swelling and dizziness currently. 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 Reached out to patient's nephew who reiterated the story. ED course: Vitals on presentation heart rate 125 otherwise vitals within normal limits, labs show troponin 1.071, glucose 363, lactate 2.3, BNP 333 EKG on admission shows ST depression in lead I II V3?V5 and some ST elevation in aVR. Chest x-ray shows mild left ventricular prominence. Urinalysis shows protein 1+, glucose 4+, RBC 11, WBC 33 leukocyte esterase positive. Treatment given in ER was 8 units of regular insulin, 40 mg Lasix and 1 g of ceftriaxone. 07/06/2025: Patient seen and examined at bedside. No new cardiac complains. Patient had successful PCI of mid LCx on 07/05/25 as noted below. Patient was given aspirin and brillinta, will change brillinta to plavix today, recommend 300 mg of plavix x1 after discontinuing brillinta today. And start plavix 75 mg once daily for tomorrow. Recommend to start metoprolol XL 25 once daily and will start losartan as outpatient if BP is high. Cath done 07/05/25 showed severe CAD with 80-90% stenosis of Mid LCx, 20% stenosis of mid LAD, 40-50% stenosis of ostial RPDA, and rest of the coronaries with minimal luminal irregularities. LVEF was normal at 60-65% with normal LVEDP. No significant transvalvular aortic gradient noted. Successful complex PCI performed of the mid LCx with 2.5 x 12 mm [place] stent with excellent results and no complications. Echo 07/05/25 2. Left ventricle size is normal and systolic function is normal. Estimated ejection fraction is 50-55%. Mild LVH. There is stage 1 diastolic function. 3. Right ventricle chamber size is normal and systolic function is reduced. Estimated RVSP is 44 mmHg with RAP 3. Severe HTN. 4. There is mild mitral, tricuspid and pulmonic valve regurgitation. 5. There is mild aortic valve sclerosis. Trace and mild aortic regurgitation. 6. Bubble study negative for any PFO or ASD. 07/07/2025: No Overnight events. Labs reviewed and patient examined at the bedside. Patient currently on aspirin, plavix, and atorvastatin. Start on metoprolol with close monitoring of BP. Denies any SOB, chest pain or palpation. Exam Vital Signs Temp Pulse Resp BP Pulse Ox O2 Del Method O2 Flow Rate 98.9 F 89 18 118/77 95 Room Air 2 07/07/25 08:00 07/07/25 09:42 07/07/25 09:42 07/07/25 08:00 07/07/25 08:00 07/07/25 08:00 07/07/25 04:00 Narrative Exam General: Awake and in no acute distress. Conversational and non-toxic appearing. HEENT: Normocephalic, atraumatic, mucous membranes moist. Heart: Regular rate and rhythm, no murmurs. Lungs: Clear to auscultation with no wheezing or crackles. Abdomen: Soft, nondistended, nontender, positive bowel sounds. ?No guarding or rebound tenderness. Neurologic: Alert and oriented x3, no gross neurological deficit, and patient able to move all 4 extremities. Extremities: No edema. Skin: No rash or ecchymoses. Objective Labs 07/07/25 05:50 07/07/25 05:50 Labs: Laboratory Results - last 24 hr 07/07/25 05:50 WBC 7.1 RBC 4.47 L Hgb 13.3 L Hct 38.8 L MCV 87 MCH 29.8 MCHC 34.3 RDW Std Deviation 40.5 Plt Count 176 Neut % (Auto) 57 Lymph % (Auto) 33 [place] % (Auto) 7 Eos % (Auto) 2 Baso % (Auto) 1 Neut # (Auto) 4.1 Lymph # (Auto) 2.3 [place] # (Auto) 0.5 Eos # (Auto) 0.1 Baso # (Auto) 0.1 Immature Gran # (Auto) 0.04 H Absolute Nucleated RBC 0.00 Immature Gran % 1 H Nucleated RBC % 0 Sodium 142 Potassium 4.0 Chloride 110 H Carbon Dioxide 20.2 Anion Gap 12 BUN 12 Creatinine 1.1 Estim Creat Clear Calc 51.6 L eGFR > 60 BUN/Creatinine Ratio 11 L Glucose 135 H Calculated Osmolality 284 Calcium 9.1 Corrected Calcium 9.2 Phosphorus 3.8 Magnesium 1.8 Total Bilirubin 0.5 AST 22 ALT 30 Alkaline Phosphatase 118 H Total Protein 6.9 Albumin 3.9 Globulin 3.0 Albumin/Globulin Ratio 1.3 Quality Measures Quality Measures none Advance care planning discussed with:: patient and other Assessment & Plan Assessment Current Active Medications: Generic Name Dose Route Start Last Admin Trade Name Kaycee PRN Reason Stop Dose Admin Acetaminophen 650 mg 07/04/25 22:27 Acetaminophen 325 Mg Tablet PO 08/03/25 22:26 Q6H PRN Fever >101.5 Ascorbic Acid 500 mg 07/05/25 09:00 07/07/25 08:44 Ascorbic Acid 250 Mg Tablet PO 08/04/25 08:59 500 mg QDAY OBDULIO Administration Aspirin 81 mg 07/05/25 09:00 07/07/25 08:46 Aspirin Ec 81 Mg Tabec PO 08/04/25 08:59 81 mg DAILY OBDULIO Administration Atorvastatin Calcium 80 mg 07/05/25 09:00 07/07/25 08:44 Atorvastatin Calcium 20 Mg Tablet PO 08/04/25 08:59 80 mg QDAY OBDULIO Administration Clopidogrel Bisulfate 75 mg 07/07/25 09:00 07/07/25 08:47 Clopidogrel Bisulfate 75 Mg Tablet PO 08/06/25 08:59 75 mg QDAY OBDULIO Administration Clotrimazole 0 gm 07/06/25 21:00 07/07/25 08:47 Clotrimazole Cr 1% 30 Gm Tube TOP 08/05/25 20:59 1 applicatio BID OBDULIO Administration Dextrose 25 ml 07/05/25 00:33 Dextrose 50%-Water Inj 50 Ml Syringe IV 08/04/25 00:32 Q15MIN PRN BG 50-70 responsive npo pt Dextrose 50 ml 07/05/25 00:33 Dextrose 50%-Water Inj 50 Ml Syringe IV 08/04/25 00:32 Q15MIN PRN BG <50 OR BG <70 & pt unresponsive Glucagon 1 mg 07/05/25 00:33 Glucagon Inj 1 Mg Vial IM Q15MIN PRN BG <70, and no IV access Insulin Degludec 10 unit 07/05/25 21:00 07/06/25 20:20 Insulin Degludec 5 Unit/0.05 Ml (Per 5 Units) SC 08/04/25 20:59 10 unit HS OBDULIO Administration Insulin Human Lispro 0 unit 07/05/25 07:30 07/07/25 07:30 Insulin Lispro (Admelog) 1 Unit/0.01 Ml Unit SC 08/04/25 07:29 Not Given ACHS [facility] Protocol Zinc Gluconate 50 mg 07/05/25 09:00 07/07/25 08:47 Zinc Gluconate 50 Mg Tablet PO 08/04/25 08:59 50 mg QDAY [facility] Administration Plan #CAD s/p PCI to mid LCx 07/05/25 - NSTEMI presentation #Syncopal episode Patient presented with witnessed syncopal episode with mild chest discomfort at [facility] when he was walking across the street, was held by staff and passed out, no fall/trauma. EKG shows ST depression in multiple leads and ST elevation in aVR On presentation troponin 1.071 >1.095 >1.108 > 0.936 BNP on presentation 333 Patient was given aspirin 325 x 1, Plavix 300 x 1 was started on heparin gtt. in the ER. CAD risk factors: Hypertension, uncontrolled insulin-dependent diabetes mellitus, hyperlipidemia TSH 6.55, free T4 within normal limits 1.63, hemoglobin A1c 9.8, lipid panel triglyceride 321, cholesterol 204, LDL 107, HDL 33 Echo 07/05/25 2. Left ventricle size is normal and systolic function is normal. Estimated ejection fraction is 50-55%. Mild LVH. There is stage 1 diastolic function. 3. Right ventricle chamber size is normal and systolic function is reduced. Estimated RVSP is 44 mmHg with RAP 3. Severe HTN. 4. There is mild mitral, tricuspid and pulmonic valve regurgitation. 5. There is mild aortic valve sclerosis. Trace and mild aortic regurgitation. 6. Bubble study negative for any PFO or ASD. 07/06/25: Patient seen and examined at bedside. No new cardiac complains. Patient had successful PCI of mid LCx on 07/05/25 as noted below. Cath done 07/05/25 showed severe CAD with 80-90% stenosis of Mid LCx, 20% stenosis of mid LAD, 40-50% stenosis of ostial RPDA, and rest of the coronaries with minimal luminal irregularities. LVEF was normal at 60-65% with normal LVEDP. No significant transvalvular aortic gradient noted. Successful complex PCI performed of the mid LCx with 2.5 x 12 mm [place] stent with excellent results and no complications. Plan: - Patient was given aspirin and brillinta post PCI, brillinta was switched to plavix yesterday. - Recommended dual antiplatelet therapy with aspirin 81 mg once daily lifetime and Plavix 75mg daily. High intensity statin to be continued - Recommend aggressive risk factor modification - Patient recommended not to lift any weight more than 5 to 10 pounds for the next 7 days and follow-up with me in the office in 7 days. - Recommend to start metoprolol XL 25 once daily and will start losartan as outpatient if BP is high. #Hypertension Patient's blood pressure within normal limits, continue to monitor Beta marsha if hemodynamically stable. #Hyperlipidemia Triglyceride 331, cholesterol 204, LDL 107, HDL 33 - Continue high intensity atorvastatin #Insulin-dependent diabetes mellitus, uncontrolled, A1c 9.8 Need strict control of DM and primary team managing it. #Status post I&D scrotal abscess and debridement of Radha's gangrene of scrotum with White catheter placement #History of ESBL Klebsiella #Possible PAD #Normal anion gap metabolic acidosis, hyperchloremic acidosis #Suspected UTI - Management per primary team Assessment and plan discussed with my attending physician Dr. Saldivar and senior resident Dr Mary PGY-2 Dr. Norris (PGY-1) - Internal medicine resident Attending Provider Attestation/Addendum I have personally seen and examined the patient separately on the above date of service and discussed the plan of care with the resident. I reviewed the resident Dr. Summer Norris / Rosangela Mary consultation progress note and agree with the resident findings and plan in the note above and have also edited the documentation to reflect my findings and plan. Miguel Saldivar M.D. Interventional Cardiology
[2025-07-07 12:00] VITALS: BP 138/91; PULSE 102; PULSE 96; RESP 19; TEMP 37.2; O2SAT 97
--- NOTE | 2025-07-07 12:17 | PC.SS ---
SEWING TEACHER was notified by bedside nurse patient had d/c orders. SEWING TEACHER contact Oliva at [facility] to confirm they can take patient, Estevan stated yes. Bedside nurse Viviana stated patient will be ready at 3:00pm. SEWING TEACHER called [facility] to schedule transportation, [facility] stated that they are unable to verify patients information and cannot schedule transportation. SEWING TEACHER called [facility], no gurney transport. BEENA form completed, SEWING TEACHER scheduled transportation with [facility] at 16:00. SEWING TEACHER notified bedside nurse Viviana and provided number for [facility] to provide report.
[2025-07-07 12:40] VITALS: BMI 26.2
[2025-07-07] MEDS: INSULIN LISPRO (AdmeLOG) 1 UNIT/0.01 ML UNIT SC (12:49)
--- NOTE | 2025-07-07 14:05 | ESDS_ITS ---
<Statement entered by Vincent Holloway MD - 07/07/25 16:27> Note reviewed and agree with care plan as documented. Please refer to the note below for further details. Plan discussed with attending physician Dr. Lucas Holloway MD PGY-2 Internal Medicine Planned Discharge Date 07/07/25 DS: Providers Provider Date of admission: 07/04/25 22:28 Primary care physician: Koby Morgan MD Admitting Provider: Xochitl Prescott MD Attending Provider on Admission: Xochitl Prescott MD Consults: 07/04/25 22:35 Consult to Cardiology Stat Comment: STEMI Consulting Provider: Miguel Saldivar 07/05/25 00:30 Referral Wound Care Routine Comment: For testicular lesion 07/07/25 10:05 Referral Registered Dietitian Routine Comment: Attending Provider on DC: Kash Zavala MD Discharging Provider: Kash Zavala MD Anticipated date of discharge: 07/07/25 DS: Diagnosis Problem List Completed Was Problem List Reviewed/Reconciled?: Yes Hospital Course Hospital Course Hospital course: Summary Mr. Avitia is a 69-year-old male with past medical history of hypertension, uncontrolled insulin-dependent diabetes mellitus diagnosed about a month ago, hyperlipidemia, status post I&D of scrotal abscess and debridement of Radha's gangrene of scrotum with White catheter placement from ESBL Klebsiella at [facility] completed antibiotics 06/30/2025, prostate problems and possible PAD with 50% stenosis of right common femoral artery on CT who presented to [facility] emergency department from [facility] after syncopal episode,he noted to be dizzy with generalized weakness and feelings of legs giving away witnessed by staff, patie nt was held by staff, did not sustain any fall, denies any trauma. Patient complained of mild chest discomfort during the episode unable to elaborate on the episode. In ED Vitals on presentation heart rate 125, labs show troponin 1.071, glucose 363, lactate 2.3, BNP 333. EKG on admission shows ST depression in lead I II V3?V5 and some ST elevation in aVR. Chest x-ray shows mild left ventricular prominence. Urinalysis shows protein 1+, glucose 4+, RBC 11, WBC 33 leukocyte esterase positive. Treatment given in ER was 8 units of regular insulin, 40 mg Lasix and 1 g of ceftriaxone. [facility]ilogy was consulted. Cath done 07/05/25 showed severe CAD with 80-90% stenosis of Mid LCx, 20% stenosis of mid LAD, 40-50% stenosis of ostial RPD. Patient had successful PCI of mid LCx on 07/05/25. Patient was given aspirin and brillinta, then switch to plavix on 07/06. Patient symptoms improve, no longer reports dizziness nor chest pain. Cardiology recommends sending home with plavix and aspirin for 1 year. Recommends for patient to also f/u urologist for of Radha's gangrene of scrotum. Throughout the hospital course patient other problems were managed and his condition improved remarkably with progression of hospital course. Further plan to discharge the patient SNF since he is stable and responded well to hospital treatment. Discharge recommendation: - Follow up with PCP in 1-2 weeks, If you don't have a PCP, you can make an appointment at the [facility]: - Follow up with urologist upon discharge - Recommend not to lift any weight more than 5 to 10 pounds for the next 7 days and follow-up with dinkey engine operator within 7 days in the office in 7 days. - Prescribed new metformin 500mg twice a day - Prescribed new metoprolol succinate 25mg (stop if feels lightheaded or low blood pressure and inform your dinkey engine operator) - Prescribed insulin degluded 10units daily - Continue rest of medications as previously prescribed - Return to the ED or call EMS is symptoms return and/or worsen - No lifting any weight more than 5 to 10 pounds for the next 7 days. - We recommend daily monitring your BP at home and record it daily for the next week Wound care instructions: - Right side of scrotum: irrigate with NS, pat dry, pack with iodoform strip packing and cover with dry gauze dressing or allyven daily and PRN for falling off or soiling - Fungal infection over penis: cleanse well with soap and water, pat dry, apply lotrimin cream BID and PRN for incontinences Hospital Diagnoses: #CAD s/p PCI to mid LCx 07/05/25 #Syncopal episode #Hypertension #Hyperlipidemia #Insulin-dependent diabetes mellitus, uncontrolled, #Status post I&D scrotal abscess and debridement of Radha's gangrene of scrotum with White catheter placement #History of ESBL Klebsiella #Possible PAD #Normal anion gap metabolic acidosis, hyperchloremic acidosis #Suspected UTI Patient assessed under supervision of attending physician and senior resident Dr. Holloway PGY-2 Caridad Bergman MD PGY-1, Internal Medicine Please note: this document was transcribed using voice recognition technology; minor inaccuracies may be present. Time Spent with Patient Time attestation: Total time spent providing and/or coordinating discharge services: Time spent: Greater than 30 minutes Exam Vital Signs Temp Pulse Resp BP Pulse Ox O2 Del Method O2 Flow Rate 98.9 F 89 18 118/77 95 Room Air 2 07/07/25 08:00 07/07/25 09:42 07/07/25 09:42 07/07/25 08:00 07/07/25 08:00 07/07/25 08:00 07/07/25 04:00 Discharge Plan Plan Patient Disposition: Xfer Skilled Ns Fac (SNF) Patient condition on transfer: Stable Care Plan Goals: - Follow up with PCP in 1-2 weeks, If you don't have a PCP, you can make an appointment at the [facility]: - Follow up with urologist upon discharge - Recommend not to lift any weight more than 5 to 10 pounds for the next 7 days and follow-up with dinkey engine operator within 7 days in the office in 7 days. - Prescribed new metformin 500mg twice a day - Prescribed new metoprolol succinate 25mg (stop if feels lightheaded or low blood pressure and inform your dinkey engine operator) - Prescribed insulin degluded 10units daily - Continue rest of medications as previously prescribed - Return to the ED or call EMS is symptoms return and/or worsen - No lifting any weight more than 5 to 10 pounds for the next 7 days. - We recommend daily monitring your BP at home and record it daily for the next week Wound care instructions: - Right side of scrotum: irrigate with NS, pat dry, pack with iodoform strip packing and cover with dry gauze dressing or allyven daily and PRN for falling off or soiling - Fungal infection over penis: cleanse well with soap and water, pat dry, apply lotrimin cream BID and PRN for incontinences Prescriptions/Referrals Prescriptions/Med Rec: New aspirin 81 mg Tablet,Delayed Release (Dr/Ec) 81 mg PO DAILY 30 Days Qty: 30 0RF atorvastatin [Lipitor] 80 mg tablet 80 mg PO QDAY 30 Days Qty: 30 0RF clopidogrel 75 mg Tablet 75 mg PO QDAY 30 Days Qty: 30 0RF insulin degludec 100 unit/mL (3 mL) insulin pen 10 unit subcut QDAY Qty: 15 0RF (DME) pen needle, diabetic [Pen Needle] 29 gauge x 1/2 needle See Rx Instructions .ROUTE Qty: 100 0RF Rx Instructions: Use for administration with insulin only (DME) blood-glucose meter Kit See Rx Instructions .ROUTE .MEDSUPPLY Qty: 1 0RF Rx Instructions: Test blood sugars three times daily before meals ICD 10: E11.65 (DME) lancets Misc See Rx Instructions .ROUTE .MEDSUPPLY Qty: 100 0RF Rx Instructions: Test blood sugars three times daily before meals ICD 10: E11.65 metformin 500 mg tablet 500 mg PO BID 30 Days Qty: 60 0RF metoprolol succinate 25 mg tablet extended release 24 hr 25 mg PO QDAY Qty: 30 0RF clotrimazole [Antifungal (clotrimazole)] 1 % cream 1 applic topical BID Qty: 45 0RF Continued ascorbic acid (vitamin C) 500 mg capsule 500 mg PO DAILY bisacodyl [Dulcolax (bisacodyl)] 10 mg suppository 10 mg ME QDAY PRN (Reason: constipation) Rx Instructions: insert suppository rectally as needed for constipation to be administered the following shift if MOM is ineffective sodium phosphates [Fleet Enema] See Rx Instructions ME .every 72 h PRN (Reason: constipation) Rx Instructions: rectally EVERY 72 H PRN; insert 1 dose rectally every 72 hours as needed for constipation to be administered the following shift if dulcolax suppository is inffective notify MD if no result sennosides-docusate sodium [Senna-S] 8.6-50 mg tablet 2 tab-cap PO QDAY acetaminophen 325 mg tablet 650 mg PO Q4H PRN (Reason: pain) Rx Instructions: give two tablets by mouth every 4 hours as needed for pain 1-5 zinc sulfate [Orazinc] 50 mg zinc (220 mg) capsule 50 mg PO QDAY ondansetron 4 mg tablet,disintegrating 4 mg PO Q6H PRN (Reason: nausea and vomiting) Rx Instructions: as need for nausea and vomiting magnesium hydroxide [Dulcolax (magnesium hydroxide)] 400 mg/5 mL suspension 30 ml PO .every 72 h PRN (Reason: constipation) Referrals: Koby Morgan MD [Primary Care Provider] Patient/Caregiver Discharge Instructions Discharge Activity: activity as tolerated Education Materials: Heart Attack Dc, Your Heart Risk Action Plan, Heart Attack resuming Sex, Blood Pressure Check Steps Print Language: Faroese Stand Alone Forms: Lupe Award Info., Patient Portal Info Letter Discharge Order Discharge Orders: Discharge (Routine); Ordered 07/07/25 Ordered By: Vincent Martinez Akoctavio Quality Discharge Quality Measures VTE prophylaxis Attestestation MD Attestation I have examined the patient, reviewed labs and imaging findings, discussed the case with the resident(s), and reviewed entered orders. I agree with the plan of care as outlined in this note. Time Spent; [address] Lucas MD
--- NOTE | 2025-07-07 14:27 | PC.NURSE ---
Report was given to nurse Yeung from [facility]. All discharge instructions were given and questions were answered. Discharge packet will be sent with patient.
[2025-07-07 15:00] VITALS: BP 130/78; PULSE 102; RESP 17; TEMP 36.9; O2SAT 98
[2025-07-10 13:41] LABS: ACT (CATH LAB ONLY) 300.0 Seconds (89-169)
== END 2025-07-07 15:07 | disposition skilled nursing facility (03) | DRG 322 ==
LOC: SERX 22:25 → SERHOLD 23:05 → S2NX 07-05 06:06
PROVIDERS: Internal Medicine Cardiovascular Disease; Physician Assistant; Admitting Provider Student in an Organized Health Care Education/Training Program; Emergency Provider Emergency Medicine; PCP Hospitalist; Visit Provider Student in an Organized Health Care Education/Training Program
DX: I21.3 ST elevation (STEMI) myocardial infarction of unspecified site (principal); E87.20 Acidosis, unspecified; N39.0 Urinary tract infection, site not specified; E87.29 Other acidosis; I11.0 Hypertensive heart disease with heart failure; I25.10 Atherosclerotic heart disease of native coronary artery without angina pectoris; I25.2 Old myocardial infarction; E11.65 Type 2 diabetes mellitus with hyperglycemia; Z79.4 Long term (current) use of insulin; E78.5 Hyperlipidemia, unspecified; I35.8 Other nonrheumatic aortic valve disorders; E87.8 Other disorders of electrolyte and fluid balance, not elsewhere classified; Z66 Do not resuscitate; Z79.02 Long term (current) use of antithrombotics/antiplatelets; Z79.82 Long term (current) use of aspirin; Z79.84 Long term (current) use of oral hypoglycemic drugs; Z79.899 Other long term (current) drug therapy; Z86.19 Personal history of other infectious and parasitic diseases; Z90.79 Acquired absence of other genital organ(s); N45.2 Orchitis
CPT/HCPCS: 36415; 71045; 80048; 80053; 80061; 81001; 83036; 83605; 83690; 83735; 83880; 84100; 84439; 84443; 84484; 85025; 85347; 85610; 85730; 87081; 87086; 87635; 93306; 96372; 96374; 99284; J0168; J0461; J0696; J1643; J1644; J1815; J1938; J2250; J2312; J2371; J3010; J3475; J3480; J3490; J7030; A9270; J2305